=== PATIENT | female | born 1990 | race Caucasian/White ===

== ENCOUNTER → 2018-06-17 21:15 | Outpatient (CLI) | payer OTHER, SELFPAY ==
[2018-06-17 11:36] VITALS: BMI 23.4
[2018-06-23 19:56] LABS: HPV APTIMA, High Risk Negative (Negative)
== END ==
PROVIDERS: Referring Provider Nurse Practitioner Women's Health; Visit Provider Nurse Practitioner Women's Health
DX: Z12.4 Encounter for screening for malignant neoplasm of cervix (principal)
CPT/HCPCS: 87624; 88175; G0145

== ENCOUNTER → 2018-08-23 09:42 | Outpatient (CLI) | payer OTHER, SELFPAY ==
[2018-08-23 09:23] VITALS: BMI 23.4
[2018-08-23 10:57] LABS: Absolute Lymphocyte Count 1.57 X10^3/ul (0.83-4.51); Absolute Neutrophil Count 7.1 X10^3/uL (2.0-7.7); Basophil# 0.01 X10^3/uL; Basophil% 0.1 % (0-1); Eosinophil# 0.08 X10^3/uL; Eosinophils% 0.9 % (0-5); Hematocrit 39.3 % (37-47); Hemoglobin 13.6 g/dl (12.0-15.0); Lymphocyte # 1.57 X10^3/ul (4.0); Lymphocyte % 16.8 % (19-41); Mean Corp Hgb Conc 34.6 g/gl (32-36); Mean Corpuscular Hgb 31.5 pg (27.0-32.0); Mean Platelet Vol. 9.8 fl (6.2-12.0); Monocyte# 0.55 X10^3/uL; Monocyte% 5.9 % (0-10); Neutrophil # 7.14 X10^3/uL (2.7-7.7); Neutrophil % 76.1 % (47-70); Platelet Count 230 K/mm3 (150-450); RBC Distribution Width CV 12.4 % (11.6-14.6); RBC Distribution Width SD 41.2 fl (35.1-43.9); Red Blood Count 4.32 M/mm3 (4.2-5.4); White Blood Count 9.4 K/mm3 (4.4-11.0)
[2018-08-23 11:00] LABS: POSITIVE COUNT NO; POSITIVE DIFFERENTIAL NO; POSITIVE MORPHOLOGY NO
[2018-08-23 11:35] LABS: HIV - WCH Non-Reactive (Nonreactive); Rubella IgG 70.5 IU/mL
[2018-08-23 20:06] LABS: Chlamydia Trachomatis by PCR Negative (Negative); Neisserai gonorrhoeae by PCR Negative (Negative); Probe Check PASS; Sample Adequacy Control PASS; Specimen Processing Control PASS
[2018-08-25 16:34] LABS: HEPATITIS B SURFACE AG Negative (Negative)
[2018-08-27 01:10] LABS: Rapid Plasmin Reagin (RPR) NONREACTIVE (NONREACTIVE)
--- OUTSIDE RECORDS SUMMARY | 2018-10-25 19:49 | XMS RPT_ITS ---
:1990 Author Organization [place] Care Team Providers Name Role Phone Raquel Mon Attending Unavailable Primay Care Physicia, No Referring Unavailable Raquel Mon Attending Unavailable Primay Care Physicia, No Primary Care Unavailable [place], Raquel Attending Unavailable Primay Care Physicia, No Referring Unavailable Yaa, Raquel Attending Unavailable [place], Raquel Referring Unavailable Primay Care Physicia, No Primary Care Unavailable [place], Raquel Attending Unavailable Yaa, Raquel Referring Unavailable Primay Care Physicia, No Primary Care Unavailable PROBLEMS PROBLEMS DATE TYPE CONDITION / CODE ATTENDING STATUS SOURCE 08/24/2018 Unknown Z34.90 - Encounter Raquel Mon Active [place] for supervision of Community normal , Hospital unspecified, Repository unspecified trimester / Z34.90(ICD-10) 08/24/2018 Unknown O99.89 - Other [place], Raquel Active [place] specified diseases Community and conditions Hospital complicating Repository , childbirth and the puerperium / O99.89(ICD-10) 08/24/2018 Unknown Z20.821 - Contact [place]edar CreekRaquel morgan Active [place] with and Community (suspected) Hospital exposure to Zika Repository virus / Z20.821(ICD-10) 06/18/2018 Unknown Z12.4 - Encounter [place] CreekRaquel morgan Active [place] for screening for Community malignant neoplasm Hospital of cervix / Repository Z12.4(ICD-10) 06/17/2018 Unknown N92.6 - Irregular Yaa, Raquel Active [place] menstruation, Community unspecified / Hospital N92.6(ICD-10) Repository 06/17/2018 Unknown Z01.411 - Encounter Raquel Mon Active [place] for gynecological [facility] examination Hospital (general) (routine) Repository with abnormal findings / Z01.411(ICD-10) PROCEDURES PROCEDURES No Procedure Records FoundRESULTS RESULTS CT/NG [facility] BY PCR Collected: 08/23/2018 Status: F Source: [place] 5:44 PM [facility] REPOSITORY TYPE CODE TESTS RESULT OUT OF RANGE REFERENCE UNITS LAB L8200.2100 Negative Normal Chlam Negative Trac PCR LAB L8200.2200 Negative Normal NG by Negative PCR Performed By: #### L8200.1999 #### [facility] [address] [place], [address] Observed: 08/23/2018 Status: F Source: [place] CULTURE, URINE 5:44 PM [facility] REPOSITORY Urine Culture ORGANISM 1: Mixed Gram Pos AND Gram Neg Org [place] Count 11,000-25,000 MIX CULTURE Mixed contaminants. Submit a new specimen if indicated. Performed By: #### M100.0650 #### [facility] [address] [place], [address] SURGICAL RESIDENT OFFICE VISIT Observed: 08/23/2018 Status: F Source: [place] REPORT 10:31 AM [facility] REPOSITORY [facility] [address] [place] [address] OFFICE VISIT Date of Service: 08/23/18 MR#: [id number] Acct: [id number] Name: HANSA LOPEZ Rep #: [id number] : 1990 Provider: CONCHA Mon Age/Sex: 28/F Location: [facility] [place] Status: Signed Intake Vital Signs08/23/18 Body Mass Index (BMI) 23.4 08/23/18 Height 5 ft 3 in 08/23/18 Weight: 131 lb 08/23/18 Body Mass Index (BMI) 23.2 08/23/18 Blood Pressure 108/64 Intake Visit Reasons: NOB - LMP 06/26 Consultant Teacher Required: No Accompanied by: Is patient in pain?: No Allergies No Known Allergies Allergy (Verified 08/23/18 08:32) Medications cranberry fruit concentrate 250 mg chewable tablet 250 mg PO TID PRN 08/23/18 [History Confirmed 08/23/18] docosahexanoic acid 200 mg capsule mg PO cap 08/23/18 [History Confirmed 08/23/18] Last Menstral Period: 06/26/18 Zika: Zika virus screening: Negative : No PFSH PFSH Medical History History of wisdom tooth extraction, class II edentulism (Acute) Surgical History History of elbow surgery (Acute) Family History Grandmother Alzheimer's dementia Social History Smoking Status: Never smoker alcohol intake: never substance use type: does not use caffeine: Yes what type of physical activity do you participate in: yoga frequency: daily seatbelt use: always do you feel safe at home: Yes 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) On hormonal BC at conception: No hCG+: 08/11/18 Antepartum Record Genetic Screening: Congenital Heart Defect: Other, Neural Tube Defect: Other, Hemoglobinopathy Or Carrier: Other, Cystic Fibrosis: Other, Chromosome Abnormality: Other, Dhiraj-Sachs: Other, Hemophilia: Other, Intellectual Disability/Autism: Other, Recurrent Loss/Stillbirth: Other, Other Structural Defect: Patient (nephew cleft lip/palate), Other Genetic Disease: Other, Maternal Metabolic Disorder: Other Comments/Counseling: Reviewed and negative Infection History: Live with someone with TB or Exposed to TB: No, Patient or Partner has history of Genital Herpes: No, Rash or Viral illness since last mentrual period: No, Prior GBS-Infected child: No, History of STD: No, HIV Infection: No, History of Hepatitis: No, Recent travel outside of [place]: Yes, Concern for Hep exposure: No, Varicella immune: Yes (chicken pox and shingles hx) Medical History Medical History: Positive: Seasonal allergies, Operations/hospitalizations (left arm fx with repair), Negative: Diabetes, Hypertension, Heart disease, Auto-immune disorder, Kidney disease/UTI, Neurologic/epilepsy, Psychiatric, Depression/ depression, Hepatitis/liver disease, Varicosities/phlebitis, Thyroid dysfunction, Trauma/domestic violence, History of blood transfusions, D (Rh) Sensitized, Pulmonary (e.g.,TB,Asthma), Drug/latex allergies/reactions, Breast, Wage And Hour Investigator surgery, Anesthetic complications, History of abnormal pap, Uterine anomaly/mickie, Infertility, Anti-retroviral treatment, Relevant family history, Other ACOG First Trimester First Trimester: Desire for , Alcohol, Tobacco Cessation, Illicit/Recreational Drug/Substance Use, Intimate Partner Violence, Barriers to care, Unstable Housing, Communication Barriers, Environmental/Work Hazards, Anticipated Course of Care, Nurtrition and weight gain, Toxoplasmosis Precations, Use of Any medications, Sexual activity, Exercise, Dental Care, Sauna/Hot tub use, Seat Belt use, Childbirth classes/Hospital facilities, Travel, Indications for US and Screening for Aneuploidy; discussed ROS Const Reports as per HPI Card Denies chest pain, Denies shortness of breath Resp Denies shortness of breath GI Denies change in stools Denies difficulty urinating, Denies abnormal vaginal bleeding, Denies vaginal odor, Denies vaginal itching, Denies vaginal discharge Exam Const General: cooperative, healthy appearing, well developed Nutritional Appearance: average body habitus, well nourished Orientation: oriented x3 Neck Neck: normal visual inspection Neck mass: No Thyroid: thyroid normal Chest Breast inspection: other (deferred, recent) Resp Effort AND Inspection: normal respiratory effort GI Inspection: normal to inspection Palpation: soft, nontender, no masses External Female Exam: normal external appearance, normal appearance of the urethra Urethra: normal appearance of the urethra Speculum Exam - Vagina: normal appearance of the vagina, normal vaginal discharge Speculum Exam - Cervix: normal appearance of the cervix, closed cervix, other (GCC collected) Bimanual Exam- Vagina AND Uterus: normal bimanual exam, uterine shape normal, uterine size normal (10 weeks) Bimanual Exam- Adnexa, other: normal adnexae, no adnexal masses, adnexae non-tender Other: TV US per Dr. Dennis Liver IUD with FHT 166 CRL 1.6cm. 8 wk 2 days. SANA 04/02/19 Skin General: no rashes or lesions noted, turgor normal Assessment AND Plan Problems 1. Encounter for supervision of normal first in first trimester Z34.01 Grav 1 SANA 04/02/19 Spouse: Ranulfo 2. 8 weeks gestation of Z3A.08 Genetic carrier and screen:checking insurance. Plan Patient oriented to practice and discussed care expectations and screenings. ACOG book offered to patient. labs plus Zika Declines flu vaccine Genetic screening offered to patient and patient chose: checking insurance RTO 4 weeks Orders Orders: Medications New: Coding Level of Care Code Off vis,est,level 4 Diagnoses Encounter for supervision of normal first in first trimester Z34.01 Trimester: first trimester 8 weeks gestation of Z3A.08 Weeks of gestation: 8 weeks 08/23/18 1031 <Electronically signed by Raquel GREYC> Date Raquel Mon BELTING CUTTER-C Cosigner Signature: Date (if applicable) CC: CBC W/DIFF, AUTOMATED Collected: 08/23/2018 Status: F Source: [place] 9:50 AM [facility] REPOSITORY TYPE CODE TESTS RESULT OUT OF RANGE REFERENCE UNITS LAB L100.1000 4.4-11.0 K/mm3 Normal WBC 9.4 LAB L100.1200 4.2-5.4 M/mm3 Normal RBC 4.32 LAB L100.1300 12.0-15.0 g/dl Normal HGB 13.6 LAB L100.1400 37-47 % Normal HCT 39.3 LAB L100.1500 81-99 fL Normal MCV 91.0 LAB L100.1600 27.0-32.0 pg Normal MCH 31.5 LAB L100.1700 32-36 g/gl Normal MCHC 34.6 LAB L100.1810 11.6-14.6 % Normal RDW CV 12.4 LAB L100.1820 35.1-43.9 fl Normal RDW SD 41.2 LAB L100.1900 150-450 K/mm3 Normal PLT 230 LAB L100.2000 6.2-12.0 fl Normal MPV 9.8 LAB L100.2100 47-70 % High NEUT% 76.1 LAB L100.2200 19-41 % Low LY% 16.8 LAB L100.2300 0-10 % Normal MONO% 5.9 LAB L100.2400 0-5 % Normal EO% 0.9 LAB L100.2500 0-1 % Normal BASO% 0.1 LAB L100.2550 0.0-0.9 % Normal IM GRAN % 0.200 Result Comment: IG% - Immature Granulocytes (promyelocytes, myelocytes and metamyelocytes) > 1% indicates that a LEFT SHIFT is Present. LAB L100.2620 2.0-7.7 X10 3/uL Normal Absolute Neut 7.1 LAB L100.2720 0.83-4.51 X10 3/ul Normal Absolute Lymph 1.57 Performed By: #### L100.0100 #### [facility] [address] [place], [address] RUBELLA IGG Collected: 08/23/2018 Status: F Source: [place] 9:50 AM [facility] REPOSITORY Order Comment: Comments: [id number] ZIKA SERUM AND URINE FROZEN TYPE CODE TESTS RESULT OUT OF RANGE REFERENCE UNITS LAB L509.4000 IU/mL Normal Rubella IgG 70.5 Result Comment: Antibody results Interpretation of Immune Status < 5 IU/ml Presumed Non-immune 5 - < 10 IU/ml Equivocal > or = 10 IU/ml Presumed Immune Performed By: #### L509.4000, L3890.6005 #### [facility] [address] [facility] [place], [address] HIV - [facility] Collected: 08/23/2018 Status: F Source: [place] 9:50 AM [facility] REPOSITORY Order Comment: Comments: [id number] ZIKA SERUM AND URINE FROZEN TYPE CODE TESTS RESULT OUT OF RANGE REFERENCE UNITS LAB L3890.6005 Nonreactive Normal HIV - [facility] Non-Reactive Performed By: #### L509.4000, L3890.6005 #### [facility] [address] [place], [address] TYPE AND SCREEN Collected: 08/23/2018 Status: F Source: [place] 9:50 AM [facility] REPOSITORY Order Comment: Reason for Type AND Screen/Red Cells: TYPE CODE TESTS RESULT OUT OF RANGE REFERENCE UNITS LAB B10.0800 O Normal BLOOD TYPE GEL POSITIVE LAB B100.4000 Normal Antibody NEGATIVE Screen Performed By: #### B101.7450 #### [facility] [address] [facility] [place], [address] HEPATITIS B SURFACE Collected: 08/23/2018 Status: F Source: [place] AG 9:50 AM [facility] REPOSITORY TYPE CODE TESTS RESULT OUT OF RANGE REFERENCE UNITS LAB L3100.0400 Negative Normal HB Negative SURF AG Result Comment: Performed at: - [facility] [address] [id number] Stable Helper: Russ Mitchell PhD, Phone: [phone] Performed By: #### L3100.0390 #### [facility] (refer to report for specific site) refer to report for address and phone number RAPID PLASMIN REAGIN Collected: 08/23/2018 Status: F Source: [place] (RPR) 9:50 AM [facility] REPOSITORY TYPE CODE TESTS RESULT OUT OF REFERENCE UNITS RANGE LAB L700.5000 NONREACTIVE NONREACTIVE Normal RPR Performed By: #### L700.5000 #### [facility] [address] 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 of containers..01 ThinPrep Vial TYPE CODE TESTS RESULT OUT OF RANGE REFERENCE UNITS LAB L7400.0800 . Normal DIAGN Comment Result Comment: NEGATIVE FOR INTRAEPITHELIAL LESION AND MALIGNANCY. FUNGAL ORGANISMS MORPHOLOGICALLY CONSISTENT WITH NAE SPECIES ARE PRESENT. LAB L7400.0900 . Normal ADEQ Comment Result Comment: Satisfactory for evaluation. Endocervical and/or squamous metaplastic cells (endocervical component) are present. LAB L7400.1400 . Normal PERFORM Comment Result Comment: Lisette Le, Front Counter Clerk (ASCP) LAB L7400.2575 . Normal TEST METHOD Comment Result Comment: This liquid based ThinPrep(R) pap test was screened with the use of an image guided system. LAB L7400.2600 . Normal . COMM LAB L7400.2700 . Normal PAPSMR Comment Result Comment: The Pap smear is a screening test designed to aid in the detection of premalignant and malignant conditions of the uterine cervix. It is not a diagnostic procedure and should not be used as the sole means of detecting cervical cancer. Both false-positive and false-negative reports do occur. LAB L7400.2760 Negative Normal HPV APTIMA, Negative HR Result Comment: This test detects fourteen high-risk HPV types (16/18/31/33/35/39/45/ 51/52/56/58/59/66/68) without differentiation. Performed at: - [facility] [id number] Stable Helper: Adry England MD, Phone: [phone] Performed at: = - [facility] [address] [id number] Stable Helper: Adry England MD, Phone: [phone] Performed By: #### L7400.0280 #### [facility] (refer to report for specific site) refer to report for address and phone number SURGICAL RESIDENT OFFICE VISIT Observed: 06/17/2018 Status: F Source: [place] REPORT 12:11 PM [facility] [address] [place] [address] OFFICE VISIT Date of Service: 06/17/18 MR#: [id number] Acct: [id number] Name: HANSA LOPEZ Rep #: [id number] : 1990 Provider: CONCHA Mon Age/Sex: 28/F Location[place] [facility] [place] Status: Signed Intake Vital Signs06/17/18 Height 5 ft 3 in 06/17/18 Weight: 132 lb 8 oz 06/17/18 Body Mass Index (BMI) 23.4 06/17/18 Blood Pressure 122/76 H 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 Complaint: NEW annual Consultant Teacher Required: No Is patient in pain?: No Allergies No Known Allergies Allergy (Unverified 06/17/18 11:37) Medications medroxyprogesterone 10 mg tablet 10 mg PO DAILY #5 tab 06/17/18 [Rx Confirmed 06/17/18] Is last menstrual period known: Yes Last Menstral Period: 05/11/18 Post menopausal: No Patient : No : No [facility] Medical History History of wisdom tooth extraction, class II edentulism (Acute) Surgical History History of elbow surgery (Acute) Family History Grandmother Alzheimer's dementia Social History Smoking Status: Never smoker alcohol intake: never substance use type: does not use caffeine: Yes what type of physical activity do you participate in: walking seatbelt use: always do you feel safe at home: Yes 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 No contraception since November, wants . Menses irregular every 4-6 weeks. Negative urine 3 days ago. Taking vitamin. Last PAP: unsure. Last exam just over 1 year ago at [facility] History of abnormal PAP: no Female Reproductive History Last Menstral Period: 05/11/18 Questions: Metorrhagia: No, Sexually active: Yes, Dyspareunia: No, PCB: No ROS Const Constitutional: Denies fatigue, weight gain or weight loss Cardio Card: Denies chest pain Resp Resp: Denies cough or shortness of breath with activity GI GI: Denies abdominal pain, constipation, change in stools, vomiting or bloating : Reports as per HPI; denies urinary frequency, pelvic pain, urinary urgency, vaginal discharge, vaginal itching, urinary incontinence or difficulty urinating Exam Const General: cooperative, healthy appearing, no acute distress, well developed Orientation: alert, oriented to person, oriented to place HENTX Head: normal to inspection Neck Neck: normal visual inspection Thyroid: thyroid normal Lymphatic: no lymphadenopathy noted Chest Breast inspection: normal inspection of the breasts, normal inspection of the axillae Breast palpation: normal palpation of the breasts, normal palpation of the axillae, no axillary lymphadenopathy Resp Effort AND Inspection: normal respiratory effort GI Palpation: soft, nontender, no masses Rectal Exam: deferred External Female Exam: normal external appearance, normal appearance of the urethra Urethra: normal appearance of the urethra, normal palpation Speculum Exam - Vagina: normal appearance of the vagina, normal vaginal discharge Speculum Exam - Cervix: normal appearance of the cervix (pap collected) Bimanual Exam- Vagina AND Uterus: normal bimanual exam, uterine size normal, uterine shape normal, uterus non-tender Bimanual Exam- Adnexa, other: normal adnexae, no adnexal masses, adnexae non-tender, pelvic support normal Pelvic Support: normal Neuro General: alert, oriented x3 Psych Affect: normal affect Results [facility]MS[facility] Office , Urine Negative Last Edit by Yaz Hernandez on 06/17/18 11:57 Assessment AND Plan Problems 1. Encounter for gynecological examination with abnormal finding Z01.411 2. Irregular menses N92.6 3. Pap smear for cervical cancer screening Z12.4 Plan Completed breast and pelvic exam Reviewed diet and exercise Pap thin prep pap with HPV Continue vitamins Urine test negative. Provera 10 mg X 5 days. Call 07/03 if no menses. In future, if no menses by day 30 do home UPT and call results and will repeat provera challenge RTO 1 year, prn with problems Raquel Mon [facility] Orders Orders: Medications New: Coding Level of Care Code Off vis,new,prev 18-39yrs Diagnoses Encounter for gynecological examination with abnormal finding Z01.411 Gynecological examination findings: abnormal findings PRESENT Irregular menses N92.6 Pap smear for cervical cancer screening Z12.4 06/17/18 1211 <Electronically signed by Raquel ANG> Date Raquel GREYC Cosigner Signature: Date (if applicable) CC: ALLERGIES ALLERGIES DATE TYPE / CODE NAME / CODE REACTION SEVERITY SOURCE 08/23/2018 Drug No Known Unknown [facility] Allergy/4160 Allergies/F00 Hospital 69487(SNOMED [id number](RXNOR Repository CT) M) ENCOUNTERS ENCOUNTERS ADMIT/DISCHARGE ACCOUNT ADMITTING ENCOUNTER LOCATION SOURCE NUMBER CLASS 08/24/2018 [id number] Ambulatory [place] [facility] ing:LAB Repository 08/23/2018 [id number] Ambulatory [place] [facility] ing:PAVLAB Repository 08/23/2018/ [id number] Ambulatory BMSBuilding:B [place] 9 6 [facility] Hospital Repository 06/17/2018 [id number] [place] [facility] ing:LABSPEC Repository 06/17/2018/ [id number] Ambulatory BMSBuilding:B [place] 8 7 [facility] Repository PAYERS PAYERS ENCOUNTER GUARANTOR PAYER SUBSCRIBER SOURCE 08/24/2018 HANSA Norris Primary HANSA Norris [place] [id number] AMAN[place] Insurance:[employer] PURDYDOB: [place], [place] icy Number: [id number] Hospital [id number]: 330 [id number] Repository [phone] () Date:5279-29-28ZS [address] [address]LM: 08/24/2018 Secondary NOT GIVENUNK [place] Insurance:SELF PAY [facility] Number: Effective Repository Date:2018-08-24 08/23/2018 HANSA Myrna Primary HANSA Norris [place] [id number] AMANDA Insurance:[employer] PURDYDOB: [place], [place] icy Number: [id number] Hospital [id number]: 330 [id number] Repository [phone] () Date:[id number] [address] [address]EB: 08/23/2018 Secondary NOT GIVENUNK [place] Insurance:SELF PAY [facility] Number: Effective Repository Date:2018-08-23 08/23/2018 HANSA LOPEZ957 Primary HANSA PURDYDOB: [place] AMANDA Insurance:[employer]ARE[employer] [id number] [place] icy Number: [facility] [address]Zuo: 330 [id number] Repository [phone] () Date:4518-04-00MZ [address] [phone]: 08/23/2018 Secondary NOT GIVENUNK [place] Insurance:SELF PAY [facility] Number: Effective Repository Date:2018-08-23 06/17/2018 HANSA LOPEZ957 Primary HANSA PURDYDOB: [place] AMANDA Insurance[id number] Hospital [id number]: 330 [id number] Repository [phone] () Date:5492-23-61PX [address] [place], [place] [address]WP: 06/17/2018 Secondary NOT GIVENUNK [place] Insurance:SELF PAY [facility] Number: Effective Repository Date:2018-06-17 06/17/2018 HANSA LOPEZ957 Primary HANSA PURDYDOB: [place] AMANDA Insurance:[employer]ARE[employer] [id number] [place] icy Number: Hospital [id number]: 330 [id number] Repository [phone] () Date:0727-82-07ZS [address] [place] [phone]: 06/17/2018 Secondary NOT GIVENUNK [place] Insurance:SELF PAY [facility] Number: Effective Repository Date:2018-06-17
== END ==
PROVIDERS: Visit Provider Nurse Practitioner Women's Health
DX: O99.89 Other specified diseases and conditions complicating pregnancy, childbirth and the puerperium (principal); Z20.821 Contact with and (suspected) exposure to Zika virus
CPT/HCPCS: 36415; 85025; 86592; 86703; 86762; 86850; 86900; 87086; 87088; 87340; 87491; 87591

== ENCOUNTER → 2018-08-24 16:37 | Outpatient (CLI) | payer OTHER, SELFPAY ==
[2018-08-23 09:23] VITALS: BMI 23.4
== END ==
PROVIDERS: Referring Provider Nurse Practitioner Women's Health; Visit Provider Nurse Practitioner Women's Health
DX: Z00.00 Encounter for general adult medical examination without abnormal findings (principal)

== ENCOUNTER → 2018-09-20 09:08 | Outpatient (CLI) | payer OTHER, SELFPAY ==
[2018-09-20 08:51] VITALS: BMI 23.4
== END ==
PROVIDERS: Visit Provider Nurse Practitioner Women's Health
DX: Z34.81 Encounter for supervision of other normal pregnancy, first trimester (principal)
CPT/HCPCS: 36415

== ENCOUNTER → 2018-10-18 09:43 | Outpatient (CLI) | payer OTHER, SELFPAY ==
[2018-10-18 09:01] VITALS: BMI 23.4
== END ==
PROVIDERS: Visit Provider Obstetrics & Gynecology
DX: Z36.9 Encounter for antenatal screening, unspecified (principal)
CPT/HCPCS: 36415

== ENCOUNTER → 2019-01-11 09:07 | Outpatient (CLI) | payer OTHER, SELFPAY ==
[2019-01-11 08:33] VITALS: BMI 25.1
[2019-01-11 09:44] LABS: Absolute Lymphocyte Count 1.14 X10^3/ul (0.83-4.51); Absolute Neutrophil Count 8.9 X10^3/uL (2.0-7.7); Basophil# 0.01 X10^3/uL; Basophil% 0.1 % (0-1); Eosinophil# 0.09 X10^3/uL; Eosinophils% 0.8 % (0-5); Hematocrit 31.8 % (37-47); Hemoglobin 11.1 g/dl (12.0-15.0); Lymphocyte # 1.14 X10^3/ul (4.0); Lymphocyte % 10.7 % (19-41); Mean Corp Hgb Conc 34.9 g/gl (32-36); Mean Corpuscular Hgb 32.1 pg (27.0-32.0); Mean Corpuscular Volume 91.9 fL (81-99); Mean Platelet Vol. 9.3 fl (6.2-12.0); Monocyte# 0.55 X10^3/uL; Monocyte% 5.1 % (0-10); Neutrophil # 8.88 X10^3/uL (2.7-7.7); Neutrophil % 83.1 % (47-70); Platelet Count 209 K/mm3 (150-450); RBC Distribution Width CV 12.2 % (11.6-14.6); RBC Distribution Width SD 40.8 fl (35.1-43.9); Red Blood Count 3.46 M/mm3 (4.2-5.4); White Blood Count 10.7 K/mm3 (4.4-11.0)
[2019-01-11 09:49] LABS: POSITIVE COUNT NO; POSITIVE DIFFERENTIAL NO; POSITIVE MORPHOLOGY NO
[2019-01-11 09:55] LABS: Glucose Challenge Gest 1H 50g 123 mg/dL (70-140)
== END ==
PROVIDERS: Referring Provider Obstetrics & Gynecology; Visit Provider Obstetrics & Gynecology
DX: Z34.93 Encounter for supervision of normal pregnancy, unspecified, third trimester (principal); Z3A.28 28 weeks gestation of pregnancy
CPT/HCPCS: 36415; 82950; 85025

== ENCOUNTER → 2019-03-07 16:57 | Outpatient (CLI) | payer OTHER, SELFPAY ==
[2019-03-07 08:44] VITALS: BMI 25.1
== END ==
PROVIDERS: Referring Provider Obstetrics & Gynecology; Visit Provider Obstetrics & Gynecology
DX: Z34.93 Encounter for supervision of normal pregnancy, unspecified, third trimester (principal); Z3A.36 36 weeks gestation of pregnancy
CPT/HCPCS: 87081

== ENCOUNTER 2019-04-05 09:25 | Inpatient (IN) | payer OTHER, SELFPAY ==
[2019-03-14 08:45] VITALS: BMI 25.1
[2019-04-05 08:45] VITALS: BMI 27.8
[2019-04-05 09:36] VITALS: BMI 28.0
[2019-04-05] MEDS: Lactated Ringers 1,000 ML 50 ML IV (09:55)
[2019-04-05 10:05] LABS: Absolute Lymphocyte Count 1.54 X10^3/uL (0.83-4.51); Absolute Neutrophil Count 8.1 X10^3/uL (2.0-7.7); Basophil# 0.03 X10^3/uL; Basophil% 0.3 % (0-1); Eosinophil# 0.17 X10^3/uL; Eosinophils% 1.6 % (0-5); Hematocrit 32.5 % (37-47); Hemoglobin 10.8 g/dL (12.0-15.0); Lymphocyte # 1.54 X10^3/ul (4.0); Lymphocyte % 14.5 % (19-41); Mean Corp Hgb Conc 33.2 g/dL (32-36); Mean Corpuscular Hgb 28.1 pg (27.0-32.0); Mean Corpuscular Volume 84.4 fL (81-99); Mean Platelet Vol. 11.2 fl (6.2-12.0); Monocyte# 0.72 X10^3/uL; Monocyte% 6.8 % (0-10); NRBC Flagged by Analyzer 0 % (0-5); Neutrophil % 76.3 % (47-70); Platelet Count 228 K/mm3 (150-450); RBC Distribution Width CV 12.4 % (11.6-14.6); Red Blood Count 3.85 M/mm3 (4.2-5.4); White Blood Count 10.6 K/mm3 (4.4-11.0)
[2019-04-05] MEDS: Oxytocin 30 units/NS 500 ml 30 UNITS/500 ML IV.SOLN IV (14:08)
--- NOTE | 2019-04-05 21:41 | HP.PCM_ITS ---
- Problem List (1) Status: Acute Qualifiers: Comment: male. NIPT low risk. AFP negative; normal anatomy (2) Supervision of normal first Status: Acute Qualifiers: Comment: PRR SANA 04/02/19 boy name surprise Spouse: Ranulfo History and Physical Date of Admission: 04/05/19 Intake Vital Signs 04/05/19 Body Mass Index (BMI) 27.8 04/05/19 Height 5 ft 3 in 04/05/19 Weight: 157 lb 04/05/19 Body Mass Index (BMI) 27.8 04/05/19 Blood Pressure 128/84 H Intake Visit Reasons: 40 WEEK OB Chief Complaint: est ob Survey Research Analyst Required: No Is patient in pain?: No Allergies No Known Allergies Allergy (Verified 04/05/19 08:45) Medications cranberry fruit concentrate 250 mg chewable tablet 250 mg PO TID PRN 08/23/18 [History Confirmed 04/05/19] docosahexanoic acid 200 mg capsule mg PO cap 08/23/18 [History Confirmed 04/05/19] Last Menstral Period: 06/26/18 Zika: Zika virus screening: Negative : No PFSH PFSH Surgical History History of elbow surgery (Acute) History of wisdom tooth extraction, class II edentulism (Acute) Family History Grandmother Alzheimer's dementia Social History (Updated 04/05/19 @ 09:10 by Carolyn Dennis MD) Smoking Status: Never smoker alcohol intake: never substance use type: does not use caffeine: Yes what type of physical activity do you participate in: yoga frequency: daily seatbelt use: always do you feel safe at home: Yes additional social history: Ranulfo- Patient works at [employer] History 1 Elective abortions Hx Para Spontaneous abortions Hx # Term Pregnancies Ectopic pregnancies Hx # Pregnancies Multiple births # of living children HPI 40 WEEK OB: Details: HANSA LOPZE is a 28 year old who presents for routine OB visit. fundal height is low and kevin is oligohydramnios at 5.3 cm. recommend IOL today. OB Visit SANA Calculator Estimated Delivery Date Method Current WG Current Estimate 04/02/19 LMP (Certain) 40w 3d Expected Delivery Route/Plan Specific Issue/Plans flu vaccine: declines tdap vaccine: given rhogam: na LARC form signed: declined labor support person: Ranulfo pain management: minimal intervention, open to epidural cut cord/dad catch: : yes PP control planned: [] special requests: [] Initial Weight: 130 lb Date EGA Weight BP Urine Prot Glucose FHR FuHt Pres Mov CTX Dilation Effaced St Visit Note Effaced 09/20/18 12w 2d 132 lb (+2 lb) 130/62 Negative Negative 166 Doing well. No VB, lof. Plans NIPT today 10/18/18 16w 2d 138 lb 8 oz (+8 lb 8 oz) 120/72 Negative Negative 160 no vb cramping ordered afp 11/15/18 20w 2d 142 lb (+12 lb) 112/64 Negative Negative 151 20 No VB, LOF. Dong well 12/21/18 25w 3d 148 lb (+18 lb) 116/72 Negative Negative 150 25 no vb lof good fm no reuglar ctx 01/11/19 28w 3d 153 lb (+23 lb) 116/74 Negative Negative 153 28 Active absent no vb lof good fm n oregular ctx 01/24/19 30w 2d 151 lb (+21 lb) 110/82 Negative Negative 145 31 Active absent no vb lof good fm n oregular ctx, took CB class, has BF class this week. 02/07/19 32w 2d 152 lb 4 oz (+22 lb 4 oz) 116/68 Negative Negative 159 32 Active absent No VB, LOF. doing well 02/21/19 34w 2d 156 lb (+26 lb) 114/80 Negative Negative 140 34 Active absent no vb lof good fm n oregulr ctx 03/07/19 36w 2d 157 lb (+27 lb) 114/62 Negative Negative 140 36 Active absent 0 no vb lof good fm no regular ctx gbs done 03/14/19 37w 2d 159 lb (+29 lb) 110/80 Negative Negative 140 38 Cephalic Active absent 0 no vb lof good fm n oregular ctx 03/21/19 38w 2d 157 lb (+27 lb) 110/80 Negative Negative 140 38 Cephalic Active absent 0 no vb lof good fm no regular ctx. 03/28/19 39w 2d 157 lb (+27 lb) 120/86 Negative Negative 150 39 Cephalic Active 1 no vb lof still fairly comfortable Visit Notes Visit Date: 03/28/19 ??no vb lof still fairly comfortable ??Carolyn Dennis MD on 03/28/19 Visit Date: 03/21/19 ??no vb lof good fm no regular ctx. ??Carolyn Dennis MD on 03/21/19 Visit Date: 03/14/19 ??no vb lof good fm n oregular ctx ??Carolyn Dennis MD on 03/14/19 Visit Date: 03/07/19 ??no vb lof good fm no regular ctx gbs done ??Carolyn Dennis MD on 03/07/19 Visit Date: 02/21/19 ??no vb lof good fm n oregulr ctx ??Carolyn Dennis MD on 02/21/19 Visit Date: 02/07/19 ??No VB, LOF. doing well ??QUE TaylorC on 02/07/19 Visit Date: 01/24/19 ??no vb lof good fm n oregular ctx, took CB class, has BF class this week. ??Carolyn Dennis MD on 01/24/19 Visit Date: 01/11/19 ??no vb lof good fm n oregular ctx ??Carolyn Dennis MD on 01/11/19 Visit Date: 12/21/18 ??no vb lof good fm no reuglar ctx ??Carolyn Dennis MD on 12/21/18 Visit Date: 11/15/18 ??No VB, LOF. Dong well ??SAV Taylor on 11/15/18 Visit Date: 10/18/18 ??ordered afp ??Carolyn Dennis MD on 10/18/18 ??no vb cramping ??Carolyn Dennis MD on 10/18/18 Visit Date: 09/20/18 ??Doing well. No VB, lof. Plans NIPT today ??SAV Taylor on 09/20/18 ACOG First Trimester First Trimester: Desire for , Alcohol, Tobacco Cessation, Illicit/Recreational Drug/Substance Use, Intimate Partner Violence, Barriers to care, Unstable Housing, Communication Barriers, Environmental/Work Hazards, Anticipated Course of Care, Toxoplasmosis Precations, Use of Any medications, Sexual activity, Exercise, Dental Care, Sauna/Hot tub use, Seat Belt use, Childbirth classes/Hospital facilities, , Travel, Indications for US and Screening for Aneuploidy Second Trimester Second Trimester: Signs and Symptoms of Labor, Selecting a care provider, Reproductive Life Planning, Care Planning, Tobacco Cessation, Depression/Anxiety and Intimate Partner Violence Third Trimester Third Trimester: Pain Management Plans, Labor support person(s), Immediate Larc, Movement Monitoring and Feeding Yes ; discussed Trial of Labor after Counseling or discussed Circumcision preference Diagnostics Diagnostics Labs Hct 31.8 % (37-47) L 01/11/19 Hgb 11.1 g/dl (12.0-15.0) L 01/11/19 Glucose 1 Hr 50 gm 123 mg/dL (70-140) 01/11/19 Miscellaneous Test 10/18/18 Diagnostics Glucose 1 Hr 50 gm 123 mg/dL (70-140) 01/11/19 Hgb 11.1 g/dl (12.0-15.0) L 01/11/19 Hct 31.8 % (37-47) L 01/11/19 Details: HIV: Urine Culture: Sequential Screen: NIPT Screen: ROS Const Reports system reviewed and no additional complaints, except as docu Card Reports system reviewed and no additional complaints, except as docu Resp Reports system reviewed and no additional complaints, except as docu GI Reports system reviewed and no additional complaints, except as docu, Reports nausea Reports system reviewed and no additional complaints, except as docu Musc Reports system reviewed and no additional complaints, except as docu Exam Const General: cooperative, healthy appearing, comfortable, anxious [facility] Head: normal to inspection Nose: external nose normal Face and sinus: normal facial exam Neck Neck: normal visual inspection, full ROM, no lymphadenopathy Thyroid: thyroid normal Chest Chest palpation & inspection: normal inspection of the chest Resp Effort & Inspection: normal respiratory effort GI Inspection: normal to inspection Palpation: soft, other (gravid uterus) Other: infant vertex and appropriate size for gestational age Other: Cervical Exam: Extrem General: pedal edema Results [id number] Office Urine Glucose Negative Last Edit by Yaz Hernandez on 04/05/19 08:4 9 Office Urine Protein Negative Last Edit by Yaz Hernandez on 04/05/19 08:4 9 Assessment & Plan Problems 1. 40 weeks gestation of Z3A.40 2. Encounter for supervision of normal first in third trimester Z34.03 Plan Patient presents IOL, plan management for , pitocin/AROM bond bulb. Pain management: prefers minimal intervention. GBS negative. Management of any complications: oligo- kevin 5 cm I have reviewed the [facility] and made any clinically relevant updates. Orders Orders: POC Urinalysis 2 Dip (Clinic) Today Coding Level of Care Code OB Routine Diagnoses 40 weeks gestation of Z3A.40 ??Weeks of gestation: 40 weeks Encounter for supervision of normal first in third trimester Z34.03 ??Trimester: third trimester
--- NOTE | 2019-04-05 21:42 | PCM.PN.BLA ---
Progress Note fht 140 moderate variability reactive early decelerations category I tracing [place]: regular arom clear fluid continue pit per protocol
[2019-04-05] MEDS: Lactated Ringers 500 ML 999 ML IV (23:17)
[2019-04-06] VITALS (13 sets, daily range): BP systolic 106–140; BP diastolic 68–78; PULSE 81–107; RESP 16; TEMP 36.4–36.8; O2SAT 96–100
[2019-04-06] MEDS: Lactated Ringers 1,000 ML 200 ML IV ×3 (00:14→10:18)
[2019-04-06] MEDS: Lactated Ringers 500 ML 999 ML IV ×2 (02:04→03:20)
[2019-04-06] MEDS: fentaNYL-bupivacaine (epidural) 100 ML BAG EPIDURAL ×3 (04:19→13:44)
--- NOTE | 2019-04-06 10:32 | PN_ITS ---
Progress Note fht 130 moderate variability reactive occasional periodic variable decelerations category II tracing [place]: regular pushing now continue. overall reassuring status, has epi
--- NOTE | 2019-04-06 10:32 | PCM.PN.BLA ---
Progress Note fht 130 moderate variability reactive occasional periodic variable decelerations category II tracing [place] [address]: regular pushing now continue. overall reassuring status, has epi
[2019-04-06] MEDS: Sodium Citrate/Citric Acid 30 ML UDC PO (15:13)
[2019-04-06] MEDS: Cefazolin 2 GM in 0.9% Normal Saline 100 ML IV (15:39)
[2019-04-06] MEDS: Methylergonovine 0.2 MG/ML Ampul IM (15:47)
--- NOTE | 2019-04-06 16:15 | OP.PCM_ITS ---
Problem List (1) Status: Acute Qualifiers: Comment: male. NIPT low risk. AFP negative; normal anatomy (2) Supervision of normal first Status: Acute Qualifiers: Comment: PRR SANA 04/02/19 boy name surprise Spouse: Ranulfo (3) Oligohydramnios Status: Acute (4) Cephalopelvic disproportion Status: Acute Report of Operation Date of Procedure: 04/06/19 Pre-Operative Diagnosis: arrest of descent cpd oligo Post-Operative Diagnosis: same Delivery Classification: MELISSA Final SANA: 04/02/19 Gestational age: 40 Weeks and 4 Days transportation broker: Tania Paniagua Type of Anesthesia:: Spinal Special Medications: none Implants Used: none Indications: preop diagnosis-see indications. CPD oligo AOD postop diagnosis - same Indications for : Failure to Progress, Arrrest of Descent, Oligohydramnios Description of Procedure: 28-year-old G1, P0 at 40 weeks 3 days presents for induction labor secondary to oligohydramnios with an KARLA of 5 cm. Patient underwent Pitocin and Meng bulb induction of labor and artificial rupture membranes. Patient proceeded to complete dilation under epidural anesthesia pushed for 1 hour and then the anterior lip of the cervix was noted to return and therefore the patient was labored down and position changes were employed in the cervix was noted to regress. Patient began pushing again and after 2 hours with good maternal effort again the cervix became apparent and swollen anteriorly and the pelvic outlet was felt to be narrow and with a very prominent sacrum. Epidural anesthesia had some limited efficacy and therefore the decision for spinal anesthesia was made. Spinal anesthesia was placed without difficulty. Meng catheter was placed. The patient was placed in the dorsal supine position with leftward tilt. Patient was prepped and draped in the normal sterile fashion. Pfannenstiel skin incision was made with the scalpel and carried through to the underlying layer of fascia with the scalpel. Fascia was nicked in the midline and the incision extended laterally. The rectus bellies were dissected off superiorly and inferiorly with out complication both sharply and bluntly. The peritoneum was entered digitally. The incision was stretched and a low transverse uterine incision was made with the scalpel. The 's head was delivered atraumatically followed by the anterior and posterior shoulders without complication the rest of the infant delivered. The cord was clamped and cut and the infant was handed off to awaiting nurse. The placenta was delivered spontaneously immediately following and was noted to be intact and have a three- vessel cord. The uterus was exteriorized cleared of all clots and debris, and the incision was closed in a double layer closure using #1 Monocryl. The ovaries and fallopian tubes were noted to be within normal limits. The uterus was returned to the maternal abdomen and gutters were cleared of all clots and debris. The peritoneum was closed with 3-0 Monocryl in a running fashion. Gloves were changed prior to fascial closure. Fascia was closed with 0 PDS in a running fashion. Subcutaneous tissue was copiously irrigated and the skin was closed with 3-0 Monocryl in a subcuticular fashion. Mepilex dressing was applied without complication. Patient was taken to recovery in stable condition. Amniotic Membrane Rupture Type: Artificial Amniotic Fluid Description: Clear Placenta Disposition: [facility] Specimen(s) sent to pathology: none Drain: Meng to straight drain Fluids Replaced: crystalloid Cord Entanglement: None Nuchal Cord Compression: With compression Cord Vessel Description: 3 Vessels Esitmated Blood Loss (ml): 500 Gender: Male Delayed cord clamping: Yes Antibiotic Given: Ancef 2 grams IV x1, Zithromax 500 mg/5 mL X1 Pt instructed on risks of surgery: Bleeding, Anesthesia Risks, Infection, Permanency, Failure Rate of 1 to 2% Complications: None - Admit VTE Documentation VTE Present on Admission: No VTE Mechan Device Prophylaxis: SCD's Code Visit [id number]: 23119 Delivery [facility]
[2019-04-06] MEDS: Oxytocin 30 units/NS 500 ml 30 UNITS/500 ML IV.SOLN 167 UNITS IV (17:47)
[2019-04-06] MEDS: Lactated Ringers 1,000 ML 100 ML IV (21:05)
[2019-04-06] MEDS: Ketorolac 30 MG/ML Syringe IV (22:36)
[2019-04-07] VITALS (12 sets, daily range): BP systolic 99–131; BP diastolic 53–80; PULSE 72–112; RESP 16–18; TEMP 36.6–37.1; O2SAT 94–98
[2019-04-07] MEDS: Lactated Ringers 1,000 ML 100 ML IV (03:22)
[2019-04-07] MEDS: Ketorolac 30 MG/ML Syringe IV ×4 (04:36→21:49)
--- NOTE | 2019-04-07 04:46 | NURSING ---
this RN dc'c an IV that pt reports was palced in OR. was in right hand. site intact and without any symptom
[2019-04-07 05:01] LABS: Hematocrit 28.5 % (37-47); Hemoglobin 9.3 g/dL (12.0-15.0); Mean Corp Hgb Conc 32.6 g/dL (32-36); Mean Corpuscular Hgb 28.1 pg (27.0-32.0); Mean Corpuscular Volume 86.1 fL (81-99); Mean Platelet Vol. 11.3 fl (6.2-12.0); Platelet Count 177 K/mm3 (150-450); RBC Distribution Width CV 12.7 % (11.6-14.6); RBC Distribution Width SD 39.7 fl (35.1-43.9); Red Blood Count 3.31 M/mm3 (4.2-5.4); White Blood Count 15.8 K/mm3 (4.4-11.0)
--- NOTE | 2019-04-07 07:44 | DCINST_ITS ---
Additional Instructions: If you experience any of the following, contact your healthcare provider. * Bleeding that soaks a pad every hour for 2 hours * Fever 100.4 or higher * Unrelieved incision or abdominal pain * Swelling, redness, discharge or bleeding from your incision or episiotomy site * Your incision begins to separate * Problems urinating (including inability to urinate or burning while urinating). * Visual changes * Severe headache * Flu-like symptoms * Pain or redness in one of both of your breasts * Pain, warmth, tenderness or swelling in your legs, especially the calf area * Frequent nausea and vomiting * Symptoms of depression or anxiety If you experience any of the following, call 911 or go to the nearest Emergency Room. * Chest pain * Problems breathing * Seizure activity * Partial or complete paralysis of a body part, slurred speech, weakness or drooping of the face, or a sudden inability to walk or hold your balance Allergies/Adverse Reactions: Allergies No Known Allergies Allergy (Verified 04/05/19 09:39) Medications to take at Discharge Vits [Prenatabs FA ] 1 tab PO DAILY 04/05/19 Follow-Up: Call to make an appointment with your doctor for an incision check in 1-2 weeks. You will also need a 6 week post- follow up appointment. Test results from this visit will be discussed in further detail at your follow- up appointment, if applicable. Primary Care Physician: Care Physician,No Primary [Primary Care Provider] -
--- NOTE | 2019-04-07 07:44 | PCM.DCCSEC ---
Additional Instructions: If you experience any of the following, contact your healthcare provider. Bleeding that soaks a pad every hour for 2 hours Fever 100.4 or higher Unrelieved incision or abdominal pain Swelling, redness, discharge or bleeding from your incision or episiotomy site Your incision begins to separate Problems urinating (including inability to urinate or burning while urinating). Visual changes Severe headache Flu-like symptoms Pain or redness in one of both of your breasts Pain, warmth, tenderness or swelling in your legs, especially the calf area Frequent nausea and vomiting Symptoms of depression or anxiety If you experience any of the following, call 911 or go to the nearest Emergency Room. Chest pain Problems breathing Seizure activity Partial or complete paralysis of a body part, slurred speech, weakness or drooping of the face, or a sudden inability to walk or hold your balance Allergies/Adverse Reactions: Allergies No Known Allergies Allergy (Verified 04/05/19 09:39) Medications to take at Discharge Vits [Prenatabs FA ] 1 tab PO DAILY 04/05/19 Follow-Up: Call to make an appointment with your doctor for an incision check in 1-2 weeks. You will also need a 6 week post- follow up appointment. Test results from this visit will be discussed in further detail at your follow-up appointment, if applicable. Primary Care Physician: Care Physician,No Primary [Primary Care Provider] -
--- NOTE | 2019-04-07 07:49 | PCM.PN.OB ---
Patient Problems: Active and Suspected Problems (Last Reviewed 04/05/19 @ 08:45 by Yaz Hernandez) Oligohydramnios (Acute) Cephalopelvic disproportion (Acute) Subjective: doing well no complaints pain controlled no CP SOB N V tolerating po lochia moderate, going well - Physical Exam General: Alert, Oriented x3 Abdomen: Soft, Non-Distended, - - FF below U. Minimal discomfort with exam. Dressing dry and intact Vital Signs Temp Pulse Resp BP Pulse Ox 98.3 F 100 16 101/56 L 94 04/07/19 03:30 04/07/19 06:45 04/07/19 06:45 04/07/19 03:30 04/07/19 06:45 Oxygen Delivery Method Room Air Weight: 158 lb 1.143 oz Body Mass Index (BMI) 28.0 Intake and Output for Last 24 Hours 04/05/19 04/06/19 04/07/19 23:59 23:59 23:59 Intake Total 1189.69 / 1189.69 7091.50 / 7091.50 628.33 / 628.33 Output Total 1600 / 1600 2375 / 2375 200 / 200 Balance -410.31 / -410.31 4716.50 / 4716.50 428.33 / 428.33 Laboratory Tests Past 24 Hrs 04/07/19 04:43 WBC 15.8 H RBC 3.31 L Hgb 9.3 L Hct 28.5 L MCV 86.1 MCH 28.1 MCHC 32.6 RDW Std Deviation 39.7 RDW Coeff of John 12.7 Plt Count 177 MPV 11.3 Medical Necessity - Tobacco Use Smoking Status: Never smoker Assessment/Plan All Active Problems (Last Reviewed 04/05/19 @ 08:45 by Yaz Hernandez) Oligohydramnios (Acute) Cephalopelvic disproportion (Acute) (Acute) Supervision of normal first (Acute) s/p LTCS PPD # 1 1. routine post care-ambulate this AM 2. breast feeding- support given 3. rh positive 4. rubella immune
[2019-04-07] MEDS: Senna/Docusate Sodium 1 Tablet PO (10:19)
[2019-04-07] MEDS: 0.9% Saline Lock 10 ML Syringe IV ×3 (10:20→21:49)
[2019-04-08 02:30] VITALS: BP 107/57; PULSE 105; RESP 18; TEMP 37.3
[2019-04-08] MEDS: Ketorolac 30 MG/ML Syringe IV ×3 (03:55→15:51)
[2019-04-08] MEDS: 0.9% Saline Lock 10 ML Syringe IV ×3 (03:56→15:50)
[2019-04-08 08:00] VITALS: BP 114/71; PULSE 90; RESP 20; TEMP 36.6
--- NOTE | 2019-04-08 09:42 | PCM.PN.OB ---
Patient Problems: Active and Suspected Problems (Last Reviewed 04/05/19 @ 08:45 by Yaz Hernandez) Oligohydramnios (Acute) Cephalopelvic disproportion (Acute) Subjective: doing well no complaints pain controlled no CP SOB N V ambulating well tolerating po lochia moderate, going well - Physical Exam General: Alert, Oriented x3 Vital Signs Temp Pulse Resp BP Pulse Ox 99.1 F 105 H 18 107/57 L 96 04/08/19 02:30 04/08/19 02:30 04/08/19 02:30 04/08/19 02:30 04/07/19 14:00 Oxygen Delivery Method Room Air Weight: 158 lb 1.143 oz Body Mass Index (BMI) 28.0 Intake and Output for Last 24 Hours 04/06/19 04/07/19 04/08/19 23:59 23:59 23:59 Intake Total 7091.50 / 7091.50 1391.66 / 1391.66 Output Total 2375 / 2375 2550 / 2550 Balance 4716.50 / 4716.50 -1158.34 / -1158.34 Medical Necessity - Tobacco Use Smoking Status: Never smoker Assessment/Plan All Active Problems (Last Reviewed 04/05/19 @ 08:45 by Yaz Hernandez) Oligohydramnios (Acute) Cephalopelvic disproportion (Acute) (Acute) Supervision of normal first (Acute) s/p LTCS PPD # 2 1. routine post care 2. breast feeding- support given 3. rh positive 4. rubella immune
[2019-04-08] MEDS: Senna/Docusate Sodium 1 Tablet PO (10:17)
[2019-04-08 14:00] VITALS: BP 123/76; PULSE 91; RESP 16; TEMP 36.4
[2019-04-08] MEDS: Naproxen 250 MG Tablet PO (20:48)
[2019-04-08 20:49] VITALS: BP 127/76; PULSE 85; RESP 16; TEMP 36.8
[2019-04-08] MEDS: Acetaminophen 500 MG Tablet 1000 MG PO (22:26)
[2019-04-09] MEDS: oxyCODONE 5 MG Tablet PO (01:55)
[2019-04-09 03:00] VITALS: BP 110/66; PULSE 83; RESP 16; TEMP 36.4
[2019-04-09] MEDS: Naproxen 250 MG Tablet PO (09:22)
[2019-04-09] MEDS: Senna/Docusate Sodium 1 Tablet PO (09:23)
--- NOTE | 2019-04-09 09:30 | PCM.PN.OB ---
Patient Problems: Active and Suspected Problems (Last Reviewed 04/05/19 @ 08:45 by Yaz Hernandez) Oligohydramnios (Acute) Cephalopelvic disproportion (Acute) Subjective: doing well no complaints pain controlled no CP SOB N V ambulating well tolerating po lochia moderate, going well - Physical Exam General: Alert, Oriented x3 Vital Signs Temp Pulse Resp BP Pulse Ox 97.5 F L 83 16 110/66 96 04/09/19 03:00 04/09/19 03:00 04/09/19 03:00 04/09/19 03:00 04/07/19 14:00 Oxygen Delivery Method Room Air Weight: 158 lb 1.143 oz Body Mass Index (BMI) 28.0 Intake and Output for Last 24 Hours 04/07/19 04/08/19 04/09/19 23:59 23:59 23:59 Intake Total 1391.66 / 1391.66 0 / 0 Output Total 2550 / 2550 Balance -1158.34 / -1158.34 0 / 0 Medical Necessity - Tobacco Use Smoking Status: Never smoker Assessment/Plan All Active Problems (Last Reviewed 04/05/19 @ 08:45 by Yaz Hernandez) Oligohydramnios (Acute) Cephalopelvic disproportion (Acute) (Acute) Supervision of normal first (Acute) s/p LTCS PPD # 3 1. routine post care 2. breast feeding- support given 3. rh positive 4. rubella immune
--- NOTE | 2019-04-09 14:03 | NURSING ---
1210 Discharged to home with baby. States she is ready to go home and feels able to care for herself and her infant. Significant other helpful and involved with care of .
== END 2019-04-09 12:10 | disposition home or self-care (01) | DRG 788 ==
PROVIDERS: Admitting Provider Obstetrics & Gynecology; Referring Provider Obstetrics & Gynecology; Visit Provider Obstetrics & Gynecology
DX: O41.03X0 Oligohydramnios, third trimester, not applicable or unspecified (principal); O33.9 Maternal care for disproportion, unspecified; O32.4XX0 Maternal care for high head at term, not applicable or unspecified; O69.1XX0 Labor and delivery complicated by cord around neck, with compression, not applicable or unspecified; O76 Abnormality in fetal heart rate and rhythm complicating labor and delivery; Z3A.40 40 weeks gestation of pregnancy; Z37.0 Single live birth
CPT/HCPCS: 59025; 59050; 85025; 85027; 86850; 86900; 86901; 99218; J7120; A4216; G0378; J2405

== ENCOUNTER → 2020-05-29 14:08 | Outpatient (CLI) | payer BC, SELFPAY ==
[2019-05-17 13:22] VITALS: BMI 28.0
[2020-05-29 15:08] LABS: hCG Titer Quant., Serum 22473 mIU/mL (1-3)
== END ==
PROVIDERS: Referring Provider Obstetrics & Gynecology; Visit Provider Obstetrics & Gynecology
DX: N91.2 Amenorrhea, unspecified (principal)
CPT/HCPCS: 36415; 84702

== ENCOUNTER → 2020-06-01 12:01 | Outpatient (CLI) | payer BC, SELFPAY ==
[2019-05-17 13:22] VITALS: BMI 28.0
--- NOTE | 2020-06-01 12:03 | US_ITS ---
STUDY: SECOND AND THIRD TRIMESTER OBSTETRICAL ULTRASOUND - LIMITED REASON FOR EXAM: Female, 29 years old DATING -- LMP 2018 DUE TO PRIOR AND BREAST FEEDING LMP: Unknown. PRIOR ULTRASOUND: None. TECHNIQUE: Transabdominal TECHNICAL QUALITY: Adequate. FINDINGS: There is a single intrauterine fetus. The fetus is in a transverse lie with the head on the maternal right side. There is demonstrated cardiac activity with a heart rate of 152 bpm. There is a normal amniotic fluid volume. The largest amniotic fluid pocket measures 5.4 cm x 5.1 cm. The amniotic fluid index (KARLA) is within normal limits. The placenta is anterior in location and is not low lying. There are Grade 0 placental changes. The cervix measures 3.7 cm in length. BIOMETRY: BPD: 6.29 cm: 25 weeks, 3 days HC: 23.7 cm: 25 weeks, 4 days AC: 21.19 cm: 25 weeks, 4 days FL: 4.74 cm: 25 weeks, 5 days age by current US: 25 weeks, 4 days. SANA by current US: 09/10/2020. Estimated weight: 851 grams, +/- 128 grams, 47 percentile. US/OB Limited With Biometrics IMPRESSION: Single live intrauterine gestation with mean gestational age of 25 weeks and 4 days. Electronically Signed: Ari Bain, at 8:20 EST , Service support ,
== END ==
PROVIDERS: Referring Provider Obstetrics & Gynecology; Visit Provider Obstetrics & Gynecology
DX: Z36.87 Encounter for antenatal screening for uncertain dates (principal); Z3A.25 25 weeks gestation of pregnancy
CPT/HCPCS: 76816

== ENCOUNTER → 2020-06-04 16:22 | Outpatient (CLI) | payer BC, SELFPAY ==
[2020-06-04 11:21] VITALS: BMI 23.0
[2020-06-04 18:54] LABS: Amphetamine Urine VISTA NEGATIVE (<1000 ng/mL); Barbiturate Urine VISTA NEGATIVE (< 200 ng/mL); Benzodiazepine Urine VISTA NEGATIVE (< 200 ng/mL); Cocaine Urine VISTA NEGATIVE (< 300 ng/mL); Ecstacy Urine VISTA NEGATIVE (< 500 ng/mL); Methadone Urine VISTA NEGATIVE (< 300 ng/mL); PCP Urine VISTA NEGATIVE (< 25 ng/mL); THC Urine VISTA NEGATIVE (< 50 ng/mL); Vista UDS pH Range 6
[2020-06-04 21:11] LABS: Chlamydia Trachomatis by PCR Negative (Negative); Neisserai gonorrhoeae by PCR Negative (Negative); Probe Check PASS; Sample Adequacy Control PASS; Specimen Processing Control PASS
== END ==
PROVIDERS: Referring Provider Obstetrics & Gynecology; Visit Provider Obstetrics & Gynecology
DX: Z34.90 Encounter for supervision of normal pregnancy, unspecified, unspecified trimester (principal)
CPT/HCPCS: 80307; 87086; 87088; 87491; 87591

== ENCOUNTER → 2020-06-25 11:08 | Outpatient (CLI) | payer BC, SELFPAY ==
[2020-06-04 11:21] VITALS: BMI 23.0
[2020-06-25 10:51] VITALS: BMI 23.5
[2020-06-25 12:12] LABS: Absolute Lymphocyte Count 1.61 X10^3/uL (0.83-4.51); Absolute Neutrophil Count 9.7 X10^3/uL (2.0-7.7); Basophil# 0.03 X10^3/uL; Basophil% 0.2 % (0-1); Eosinophil# 0.12 X10^3/uL; Hematocrit 33.3 % (37-47); Hemoglobin 11.3 g/dL (12.0-15.0); Lymphocyte # 1.61 X10^3/ul (4.0); Lymphocyte % 13.3 % (19-41); Mean Corp Hgb Conc 33.9 g/dL (32-36); Mean Corpuscular Hgb 31.5 pg (27.0-32.0); Mean Corpuscular Volume 92.8 fL (81-99); Mean Platelet Vol. 9.5 fl (6.2-12.0); Monocyte% 4.1 % (0-10); NRBC Flagged by Analyzer 0 % (0-5); Neutrophil % 80.1 % (47-70); Platelet Count 276 K/mm3 (150-450); RBC Distribution Width CV 11.8 % (11.6-14.6); RBC Distribution Width SD 39.8 fl (35.1-43.9); Red Blood Count 3.59 M/mm3 (4.2-5.4); White Blood Count 12.1 K/mm3 (4.4-11.0)
--- NOTE | 2020-06-25 12:24 | US_ITS ---
STUDY: SECOND AND THIRD TRIMESTER OBSTETRICAL ULTRASOUND REASON FOR EXAM: Female, 30 years old anatomy LMP: 12/04/2019 TECHNIQUE: Transabdominal TECHNICAL QUALITY: Adequate. PRIOR ULTRASOUND: 06/01/2020. FINDINGS: There is a single intrauterine fetus. The fetus is in a variable presentation. There is demonstrated cardiac activity with a heart rate of 148 bpm. There is a normal amniotic fluid volume. The largest amniotic fluid pocket measures 4.2 cm. The placenta is anterior in location and is not low lying. There are Grade 0 placental changes. The cervix measures 4.7 cm in length. The bilateral adnexal regions are normal. BIOMETRY: BPD: 7.4: 29 weeks, 4 days HC: 27.3: 29 weeks, 5 days AC: 24.3: 28 weeks, 3 days FL: 5.1: 29 weeks, 4 days CI: FL/BPD: FL/HC: FL/AC: HC/AC: age by current US: 29 weeks, 1 days. SANA by current US: 09/09/2020. Estimated weight: 1339 grams, +/- 198 grams, 36 %. age by prior US: 29 weeks, 0 days. SANA by prior US: 09/10/2020. Age by LMP: 29 weeks, 0 days. SANA by LMP: 09/10/2020. ANATOMY: Gender: Female Cranium: Normal lateral ventricles. Normal choroid plexus. Normal cerebellum. Normal cisterna magna. Normal face, nose and lips. Chest: Normal 4-chamber heart. Abdomen/Pelvis: Normal diaphragm. Normal stomach. Normal abdominal wall. Normal cord insertion. Normal 3 vessel cord. Normal kidneys. Normal bladder. Spine: Normal cervical spine. Normal thoracic spine. Normal lumbar spine. Normal sacrum. Extremities: Normal bilateral upper extremities. Normal bilateral lower extremities. US/OB Anatomy Scan IMPRESSION: Single live fetus in a variable presentation. No demonstrated anatomic abnormality. Placenta is grade 0 and is not low-lying. Cervix is closed. age by current US: 29 weeks, 1 days. SANA by current US: 09/09/2020. Estimated weight: 1339 grams, +/- 198 grams, 36 %. Electronically Signed: Cristian Nassar MD at 18:00 EST , Service support ,
[2020-06-25 12:41] LABS: Glucose Challenge Gest 1H 50g 115 mg/dL (70-140)
[2020-06-25 13:28] LABS: HIV - WCH Non-Reactive (Nonreactive); Hepatitis B Surface Antigen Non-Reactive (Nonreactive); Hepatitis C Antibody Non-Reactive (Nonreactive)
[2020-06-25 16:54] LABS: Chlamydia Trachomatis by PCR Negative (Negative); Neisserai gonorrhoeae by PCR Negative (Negative); Probe Check PASS; Specimen Processing Control PASS
[2020-06-25 16:55] LABS: Sample Adequacy Control PASS
[2020-06-27 08:48] LABS: Rubella IgG Reactive (Nonreactive)
[2020-06-28 05:07] LABS: Rapid Plasmin Reagin (RPR) NONREACTIVE (NONREACTIVE)
== END ==
PROVIDERS: Referring Provider Obstetrics & Gynecology; Visit Provider Obstetrics & Gynecology
DX: Z34.90 Encounter for supervision of normal pregnancy, unspecified, unspecified trimester (principal)
CPT/HCPCS: 36415; 76805; 82950; 85025; 86592; 86703; 86762; 86803; 86850; 86900; 86901; 87340; 87491; 87591

== ENCOUNTER → 2020-08-24 16:26 | Outpatient (CLI) | payer BC, SELFPAY ==
[2020-08-24 13:36] VITALS: BMI 24.7
== END ==
PROVIDERS: Referring Provider Obstetrics & Gynecology; Visit Provider Obstetrics & Gynecology
DX: Z34.93 Encounter for supervision of normal pregnancy, unspecified, third trimester (principal); Z3A.36 36 weeks gestation of pregnancy
CPT/HCPCS: 87081

== ENCOUNTER → 2020-08-31 17:12 | Outpatient (CLI) | payer BC, SELFPAY ==
[2020-08-10 13:53] VITALS: BMI 24.5
[2020-08-31 13:43] VITALS: BMI 25.0
== END ==
PROVIDERS: Visit Provider Nurse Practitioner Women's Health
DX: Z34.90 Encounter for supervision of normal pregnancy, unspecified, unspecified trimester (principal)
CPT/HCPCS: 87635; C9803; U0005; U0003

== ENCOUNTER 2020-09-04 09:40 | Inpatient (IN) | payer BC, SELFPAY ==
[2020-06-04 11:21] VITALS: BMI 23.0
[2020-08-31 13:43] VITALS: BMI 25.0
[2020-09-04] VITALS (16 sets, daily range): BP systolic 96–127; BP diastolic 45–79; PULSE 74–104; RESP 14–18; TEMP 36.3–36.9; O2SAT 95–100; BMI 25.6
--- NOTE | 2020-09-04 07:52 | HP.PCM_ITS ---
- Problem List (1) 36 weeks gestation of Status: Acute Comment: electronic covid test ordered 08/17/20 (scheduled on 08/31/20 at 1630) (2) History of delivery Status: Acute Comment: plan RLTCS with SM on 09/04/20 (3) Lab test negative for COVID-19 virus Status: Acute Comment: 09/03/20 (4) Late care affecting Status: Acute Qualifiers: Comment: 1st visit 25 weeks. repeat us/full anatomy beginning of july (5) Status: Acute Qualifiers: Comment: genetic and carrier screening declined. anatomy US nl. (6) Supervision of normal , antepartum Status: Acute Qualifiers: Comment: PRR SANA 09/10/20 girl Bea Sunshine Ranulfo History and Physical Date of Admission: 09/04/20 Intake Vital Signs 08/31/20 Height 5 ft 4 in 08/31/20 Weight: 146 lb 08/31/20 BMI 25.0 08/31/20 BP 120/80 Intake Visit Reasons: 37WK OB Chief Complaint: est ob Silk Screen Layout Drafter Required: No Is patient in pain?: No Allergies No Known Allergies Allergy (Verified 08/31/20 13:43) Medications Vits [Prenatabs FA ] 1 tab PO DAILY 04/05/19 [History Confirmed 08/31/20] Last Menstral Period: 06/26/18 Zika: Zika virus screening: Negative : No PFSH PFSH Surgical History delivery delivered (Acute) History of elbow surgery (Acute) History of wisdom tooth extraction, class II edentulism (Acute) Family History Grandmother Alzheimer's dementia Social History (Updated 08/31/20 @ 13:[address] Carolyn Dennis MD) Smoking Status: Never smoker alcohol intake: never substance use type: does not use caffeine: Yes what type of physical activity do you participate in: yoga frequency: daily seatbelt use: always do you feel safe at home: Yes additional social history: Ranulfo- Patient works at [employer] Pregancy History 2 Elective abortions Hx Para 1 Spontaneous abortions Hx # Term Pregnancies Ectopic pregnancies Hx # Pregnancies Multiple births # of living children 1 Past Pregnancies Del. Date Name GA/Weeks Outcome Route Bth Weight Gen Labor Lgth Anesthesia Del Locatn Provider FOB 04/06/19 Bita 40 live - full term C- section Male spinal [facility] Delivery Date: 04/06/19 LTCS; True CPD; AoD; Failure to progress; [place] AleksandraCelia HPI 37WK OB : Details: HANSA LOPEZ is a 30 year old who presents for RLTCS declined TOLAC. OB Visit SANA Calculator Estimated Delivery Date Method Current WG Current Estimate 09/10/20 Manual 38w 4d Expected Delivery Route/Plan LTCS with SM o 09/04/20 Labor Preferences- CB/BF classes: no labor support person: ranulfo labor intervention preferences: rltcs pain management options preferred: rltcs cut cord/dad catch: : yes PP control planned: discussed possible routes of delivery and associated risks: [] special requests: [] Specific Issue/Plans flu vaccine: declined. tdap vaccine: given rhogam: na LARC form signed: declined movement and labor precautions reviewed. Problem list reviewed and updated with the most current plan of care details and appropriate orders placed. Relevant counseling for the gestational age provided. Continue routine care and follow up unless otherwise noted in visit notes/problem list details Initial Weight: Not Recorded Date EGA Weight BP Urine Prot Glucose FHR FuHt Pres Dilation Effaced St Visit Note 06/04/20 26w 0d 134 lb 122/68 150 SM- no vb cramping, late PNC due to not knowing she was . 06/25/20 29w 0d 137 lb 120/70 Negative Negative 145 SM- gct today. no vb lof good fm no regular ctx 07/13/20 31w 4d 107/70 Negative Negative 145 SM- no vb lof good fm no reuglar ctx 07/25/20 33w 2d 139 lb 4 oz 114/72 Negative Negative 154 33 MH-No VB, LOF. Good FM. Denies concerns. 08/10/20 35w 4d 143 lb 122/80 Negative Negative 150 Sm- no vb lof good fm no regular ctx 08/24/20 37w 4d 144 lb 124/88 Negative Negative 135 SM- no vb lof good fm nor egular ctx gbs today 08/31/20 38w 4d 146 lb 120/80 Negative Negative 140 38 SM- no vb lof good fm no regular ctx preop for cs ACOG First Trimester First Trimester: Desire for , Alcohol, Tobacco Cessation, Illicit/Recreational Drug/Substance Use, Intimate Partner Violence, Barriers to care, Unstable Housing, Communication Barriers, Environmental/Work Hazards, Anticipated Course of Care, Toxoplasmosis Precations, Use of Any medications, Sexual activity, Exercise, Dental Care, Sauna/Hot tub use, Seat Belt use, Childbirth classes/Hospital facilities, , Travel, Indications for US and Screening for Aneuploidy Second Trimester Second Trimester: Signs and Symptoms of Labor, Selecting a care provider, Reproductive Life Planning, Care Planning, Tobacco Cessation, Depression/Anxiety and Intimate Partner Violence Third Trimester Third Trimester: Pain Management Plans, Labor support person(s), Immediate Larc and Movement Monitoring; discussed Trial of Labor after Counseling or discussed Circumcision preference Diagnostics Diagnostics Diagnostics Blood Type O POSITIVE 06/25/20 Antibody Screen NEGATIVE 06/25/20 Glucose 1 Hr 50 gm 115 mg/dL (70-140) 06/25/20 HIV 1&2 Antibody Non-Reactive (Nonreactive) 06/25/20 Rubella IgG Antibody Reactive (Nonreactive) 06/25/20 Hgb 11.3 g/dL (12.0-15.0) L 06/25/20 Hct 33.3 % (37-47) L 06/25/20 RPR NONREACTIVE (NONREACTIVE) 06/25/20 Details: HIV: Urine Culture: Sequential Screen: NIPT Screen: ROS Const Reports system reviewed and no additional complaints, except as docu Card Reports system reviewed and no additional complaints, except as docu Resp Reports system reviewed and no additional complaints, except as docu GI Reports system reviewed and no additional complaints, except as docu, Reports nausea Reports system reviewed and no additional complaints, except as docu Musc Reports system reviewed and no additional complaints, except as docu Exam Const General: cooperative, healthy appearing, comfortable, anxious HENMT Head: normal to inspection Nose: external nose normal Face and sinus: normal facial exam Neck Neck: normal visual inspection, full ROM, no lymphadenopathy Thyroid: thyroid normal Chest Chest palpation & inspection: normal inspection of the chest Resp Effort & Inspection: normal respiratory effort GI Inspection: normal to inspection Palpation: soft, other (gravid uterus) Other: vertex and appropriate size for gestational age Other: Cervical Exam: Extrem General: pedal edema Results POC Urinalysis 2 Dip (Clinic) Office Urine Glucose Negative Last Edit by Yaz Hernandez on 08/31/20 13:4 7 Office Urine Protein Negative Last Edit by Yaz Hernandez on 08/31/20 13:4 7 Assessment & Plan Problems 1. History of delivery Z98.891 plan RLTCS with SM on 09/04/20 2. Supervision of normal , antepartum Z34.90 PRR SANA 09/10/20 girl Bea Sunshine Ranulfo 3. Z34.90 genetic and carrier screening declined. anatomy US nl. 4. 36 weeks gestation of Z3A.36 electronic covid test ordered 08/17/20 (scheduled on 08/31/20 at 1630) 5. Late care affecting O09.30 1st visit 25 weeks. repeat us/full anatomy beginning of july plan RLTCS After discussing the patient's diagnosis and treatment plan options, patient wishes to proceed with surgical management. I have discussed with the patient the risks, benefits, and alternatives of the procedure which include but are not limited to risks of anesthesia, bleeding, infection, possible damage to bowel, bladder, or surrounding vasculature which could lead to additional surgery to evaluate any complications. Patient agrees to procedure and wishes to proceed. ACOG/uptodate references given for additional information regarding procedure. Orders Orders: POC Urinalysis 2 Dip (Clinic) Today Coding Level of Care Code OB Routine Diagnoses History of delivery Z98.891 Supervision of normal , antepartum Z34.90 Z34.90 36 weeks gestation of Z3A.36 Late care affecting O09.30
[2020-09-04] MEDS: Lactated Ringers 1,000 ML 999 ML IV (10:00)
--- NOTE | 2020-09-04 10:23 | OP.PCM_ITS ---
Problem List (1) 36 weeks gestation of Status: Acute Comment: electronic covid test ordered 08/17/20 (scheduled on 08/31/20 at 1630) (2) History of delivery Status: Acute Comment: plan RLTCS with SM on 09/04/20 (3) Lab test negative for COVID-19 virus Status: Acute Comment: 09/03/20 (4) Late care affecting Status: Acute Qualifiers: Comment: 1st visit 25 weeks. repeat us/full anatomy beginning of july (5) Status: Acute Qualifiers: Comment: genetic and carrier screening declined. anatomy US nl. (6) Supervision of normal , antepartum Status: Acute Qualifiers: Comment: PRR SANA 09/10/20 girl Bea ILDA Sunshine Ranulfo Delivery Classification: Scheduled Final SANA: 09/10/20 Gestational age: 39 Weeks and 1 Days Type of Anesthesia:: Spinal Special Medications: none Implants Used: none Date of Procedure: 09/04/20 Pre-Operative Diagnosis: previous Indications for : Repeat Elective Description of Procedure: Spinal anesthesia was placed without difficulty. Meng catheter was placed. The patient was placed in the dorsal supine position with leftward tilt. Patient was prepped and draped in the normal sterile fashion. Pfannenstiel skin incision was made with the scalpel and carried through to the underlying layer of fascia with the scalpel. Fascia was nicked in the midline and the incision extended laterally. The rectus bellies were dissected off superiorly and inferiorly with out complication both sharply and bluntly. The peritoneum was entered digitally. The incision was stretched and a low transverse uterine incision was made with the scalpel. The infant's head was delivered atraumatically followed by the anterior and posterior shoulders without complication the rest of the infant delivered. The cord was clamped and cut and the was handed off to awaiting nurse. The placenta was delivered spontaneously immediately following and was noted to be intact and have a three- vessel cord. The uterus was exteriorized cleared of all clots and debris, and the incision was closed in a double layer closure using #1 Monocryl. The ovaries and fallopian tubes were noted to be within normal limits. The uterus was returned to the maternal abdomen and gutters were cleared of all clots and debris. The peritoneum was closed with 3-0 Monocryl in a running fashion. Gloves were changed prior to fascial closure. Fascia was closed with 0 PDS in a running fashion. Subcutaneous tissue was copiously irrigated and the skin was closed with 3-0 Monocryl in a subcuticular fashion. Mepilex dressing was applied without complication. Patient was taken to recovery in stable condition. It was discussed with the patient that based on the clinical information obtained during this encounter, combined with her history, at this time I would recommend cesareans for future deliveries if further pregnancies are desired. Amniotic Membrane Rupture Type: Artificial Amniotic Fluid Description: Clear Placenta Disposition: [facility] Inf[facility] Gender: Female Delayed cord clamping: Yes Antibiotic Given: Ancef 2 grams IV x1 Pt instructed on risks of surgery: Bleeding, Anesthesia Risks, Infection, Need for Future C-Sections, Injury to surrounding structure(s) including bowel and bladder Multi Select Codes - Urinary/Genital Urinary/Genital CPT Codes: 50924 Delivery [facility]
[2020-09-04] MEDS: Acetaminophen 500 MG Tablet 1000 MG PO ×3 (10:25→20:43)
--- NOTE | 2020-09-04 10:28 | PCM.DCCSEC ---
Discharge Diet: No Restrictions Discharge Activity: May Not Drive - for 2 weeks, May not drive while taking narcotic pain medications., May Shower, May Take a Tub Bath - in 7 days May resume sexual activity in: 4-6 weeks Lifting Restrictions: 20 pounds Additional Activity Instructions:: Nothing in the vagina for 4-6 weeks. You may return to work/school in 6 weeks. Call your doctor if your incision/area has: Continuous Slow Oozing, Sudden Increased Bleeding, Increased Pain/ Swelling, Increased Redness, Foul Smelling Discharge Call your doctor if you observe: Fever of 101 or Higher, Using more than one pad per hour - for 2 hours Suture Line Care: Avoid Pulling/Pushing, Avoid Pinching/Bending Cleanse incision/area with: Keep Dressing Clean & Dry Additional Instructions: If you experience any of the following, contact your healthcare provider. Bleeding that soaks a pad every hour for 2 hours Fever 100.4 or higher Unrelieved incision or abdominal pain Swelling, redness, discharge or bleeding from your incision or episiotomy site Your incision begins to separate Problems urinating (including inability to urinate or burning while urinating). Visual changes Severe headache Flu-like symptoms Pain or redness in one of both of your breasts Pain, warmth, tenderness or swelling in your legs, especially the calf area Frequent nausea and vomiting Symptoms of depression or anxiety If you experience any of the following, call 911 or go to the nearest Emergency Room. Chest pain Problems breathing Seizure activity Partial or complete paralysis of a body part, slurred speech, weakness or drooping of the face, or a sudden inability to walk or hold your balance Allergies/Adverse Reactions: Allergies No Known Allergies Allergy (Verified 09/04/20 10:01) Medications to take at Discharge Vits [Prenatabs FA ] 1 tab PO DAILY 04/05/19 Naproxen [Naprosyn] 250 - 500 mg PO Q8H PRN PRN #30 tab 09/04/20 Oxycodone HCl/Acetaminophen [Percocet 5-325] 1 - 2 tablet PO Q6H PRN PRN 7 Days #15 tablet 09/04/20 The following prescriptions were given: Naproxen [Naprosyn] 250 - 500 mg PO Q8H PRN PRN #30 tab PRN Reason: MILD PAIN Transmission Status: Pending to [facility] Oxycodone HCl/Acetaminophen [Percocet 5-325] 1 - 2 tablet PO Q6H PRN PRN 7 Days #15 tablet PRN Reason: Pain Transmission Status: Sent to [facility] Follow-Up: Call to make an appointment with your doctor for an incision check in 1-2 weeks. You will also need a 6 week post- follow up appointment. Test results from this visit will be discussed in further detail at your follow-up appointment, if applicable. Please Follow Up With: Carolyn Dennis MD - Call to make an appointment for an incision check in 1-2 [phone] When: You will need a post- check in 6 weeks. Primary Care Physician: Care Physician,No Primary [Primary Care Provider] -
[2020-09-04 10:36] LABS: Absolute Neutrophil Count 7.3 X10^3/uL (2.0-7.7); Basophil# 0.03 X10^3/uL; Basophil% 0.3 % (0-1); Eosinophil# 0.05 X10^3/uL; Eosinophils% 0.5 % (0-5); Hematocrit 31.2 % (37-47); Lymphocyte % 14.9 % (19-41); Mean Corp Hgb Conc 32.1 g/dL (32-36); Mean Corpuscular Hgb 25.8 pg (27.0-32.0); Mean Corpuscular Volume 80.6 fL (81-99); Mean Platelet Vol. 11.2 fl (6.2-12.0); Monocyte# 0.57 X10^3/uL; Monocyte% 6.1 % (0-10); NRBC Flagged by Analyzer 0 % (0-5); Neutrophil # 7.34 X10^3/uL (2.7-7.7); Neutrophil % 77.9 % (47-70); Platelet Count 250 K/mm3 (150-450); RBC Distribution Width CV 12.3 % (11.6-14.6); RBC Distribution Width SD 35.9 fl (35.1-43.9); Red Blood Count 3.87 M/mm3 (4.2-5.4); White Blood Count 9.4 K/mm3 (4.4-11.0)
[2020-09-04] MEDS: Lactated Ringers 1,000 ML 150 ML IV (11:30)
[2020-09-04] MEDS: Sodium Citrate/Citric Acid 30 ML UDC PO (11:43)
[2020-09-04] MEDS: Oxytocin 30 units/NS 500 ml 30 UNITS/500 ML IV.SOLN 167 UNITS IV (13:29)
[2020-09-04] MEDS: Lactated Ringers 1,000 ML 100 ML IV (15:20)
[2020-09-04] MEDS: Ketorolac 30 MG/ML Syringe IV (18:32)
[2020-09-05 00:23] VITALS: BP 112/66; PULSE 89; RESP 16; TEMP 36.6; O2SAT 96
[2020-09-05] MEDS: Ketorolac 30 MG/ML Syringe IV ×3 (00:26→12:18)
[2020-09-05] MEDS: 0.9% Saline Lock 10 ML Syringe IV ×3 (00:27→12:19)
[2020-09-05] MEDS: Acetaminophen 500 MG Tablet 1000 MG PO ×4 (03:13→23:49)
[2020-09-05 03:20] VITALS: BP 99/62; PULSE 86; RESP 16; TEMP 36.9
[2020-09-05 06:23] LABS: Hematocrit 27.9 % (37-47); Mean Corp Hgb Conc 32.3 g/dL (32-36); Mean Corpuscular Hgb 26.2 pg (27.0-32.0); Mean Corpuscular Volume 81.1 fL (81-99); Mean Platelet Vol. 10.3 fl (6.2-12.0); Platelet Count 215 K/mm3 (150-450); RBC Distribution Width CV 12.4 % (11.6-14.6); RBC Distribution Width SD 36.8 fl (35.1-43.9); Red Blood Count 3.44 M/mm3 (4.2-5.4); White Blood Count 7.9 K/mm3 (4.4-11.0)
[2020-09-05 08:00] VITALS: BP 105/64; PULSE 76; RESP 16; TEMP 36.6
--- NOTE | 2020-09-05 08:01 | PCM.PN.OB ---
Patient Problems: Active and Suspected Problems (Last Reviewed 08/31/20 @ 13:44 by Yaz Hernandez) Lab test negative for COVID-19 virus (Acute) 09/03/20 36 weeks gestation of (Acute) electronic covid test ordered 08/17/20 (scheduled on 08/31/20 at 1630) Late care affecting (Acute) 1st visit 25 weeks. repeat us/full anatomy beginning of july (Acute) genetic and carrier screening declined. anatomy US nl. Supervision of normal , antepartum (Acute) PRR SANA 09/10/20 girl Bea Sunshine Ranulfo History of delivery (Acute) plan RLTCS with SM on 09/04/20 Subjective: Patient doing well without complaints. Tolerating PO. Ambulating and voiding without difficulty. Breast feeding well. Denies chest pain, shortness of breath, calf pain/swelling, fevers, chills, lightheadedness. Objective: Laboratory Tests 09/05/20 09/04/20 09/04/20 Range/Units 06:15 10:00 10:00 WBC 7.9 9.4 (4.4-11.0) K/mm3 RBC 3.44 L 3.87 L (4.2-5.4) M/mm3 Hgb 9.0 L 10.0 L (12.0-15.0) g/dL Hct 27.9 L 31.2 L (37-47) % MCV 81.1 80.6 L (81-99) fL MCH 26.2 L 25.8 L (27.0-32.0) pg MCHC 32.3 32.1 (32-36) g/dL RDW Std Deviation 36.8 35.9 (35.1-43.9) fl RDW Coeff of John 12.4 12.3 (11.6-14.6) % Plt Count 215 250 (150-450) K/mm3 MPV 10.3 11.2 (6.2-12.0) fl Immature Gran % (Auto) 0.300 (0.0-0.9) % Neut % (Auto) 77.9 H (47-70) % Lymph % (Auto) 14.9 L (19-41) % Ector % (Auto) 6.1 (0-10) % Eos % (Auto) 0.5 (0-5) % Baso % (Auto) 0.3 (0-1) % Absolute Neuts (auto) 7.3 (2.0-7.7) X10^3/uL Absolute Lymphs (auto) 1.40 (0.83-4.51) X10^3/uL Nucleated RBC % 0 (0-5) % Blood Type O POSITIVE Antibody Screen NEGATIVE - Physical Exam Vitals/I&O's: Vital Signs Temp Pulse Resp BP Pulse Ox 98.5 F 86 16 99/62 96 09/05/20 03:20 09/05/20 03:20 09/05/20 03:20 09/05/20 03:20 09/05/20 00:23 Oxygen Delivery Method Room Air Weight: 144 lb 8 oz Body Mass Index (BMI) 25.6 Intake and Output for Last 24 Hours 09/03/20 09/04/20 09/05/20 23:59 23:59 23:59 Intake Total 3266.45 / 3266.45 Output Total 1600 / 1600 500 / 500 Balance 1666.45 / 1666.45 -500 / -500 General: Alert, Oriented x3, Cooperative, No apparent distress, Well developed, Well nourished HEENT: Atraumatic, PERRLA, EOMI, Normocephalic Neck: Supple, No JVD Lungs: Normal air movement Cardiovascular: Regular rate Abdomen: Soft, Non Tender, Non-Distended, - - incision c/d/i with dressing in place, fundus firm Extremities: No edema, No Calf Tenderness Neurological: Cranial nerves II-XII grossly intact, Neuro grossly intact Psych/Mental Status: Normal Affect, Appropriate Laboratory Results 09/04/20 10:00: WBC 9.4, RBC 3.87 L, Hgb 10.0 L, Hct 31.2 L, MCV 80.6 L, MCH 25.8 L, MCHC 32.1, RDW Std Deviation 35.9, RDW Coeff of John 12.3, Plt Count 250, MPV 11.2, Immature Gran % (Auto) 0.300, Neut % (Auto) 77.9 H, Lymph % (Auto) 14.9 L, Ector % (Auto) 6.1, Eos % (Auto) 0.5, Baso % (Auto) 0.3, Absolute Neuts (auto) 7.3, Absolute Lymphs (auto) 1.40, Nucleated RBC % 0 09/04/20 10:00: Blood Type O POSITIVE, Antibody Screen NEGATIVE 09/05/20 06:15: WBC 7.9, RBC 3.44 L, Hgb 9.0 L, Hct 27.9 L, MCV 81.1, MCH 26.2 L, MCHC 32.3, RDW Std Deviation 36.8, RDW Coeff of John 12.4, Plt Count 215, MPV 10.3 Current Medications Acetaminophen (Acetaminophen 500 Mg Tablet) 1,000 mg PO Q6H [facility] Bisacodyl (Bisacodyl 10 Mg Suppository) 10 mg RECTAL UD PRN PRN Reason: If no BM Hydrocortisone (Hydrocortisone 2.5% Crm) 1 applic TOPICAL TID PRN PRN; Protocol PRN Reason: Discomfort Ketorolac Tromethamine (Ketorolac 30 Mg/Ml Syringe) 30 mg IV Q6H [facility] Stop: 09/05/20 12:31 Last Admin: 09/05/20 06:12 Dose: 30 mg Documented by: Methylergonovine Maleate (Methylergonovine 0.2 Mg/Ml Ampul) 0.2 mg IM X1 PRN PRN Reason: Uterine Atony Naproxen (Naproxen 250 Mg Tablet) 500 mg PO Q8H [facility] Ondansetron HCl (Ondansetron 4 Mg/2 Ml Vial) 4 mg IV Q4H PRN PRN PRN Reason: Nausea Oxycodone HCl (Oxycodone 5 Mg Tablet) 5 - 10 mg PO Q4H PRN PRN PRN Reason: Pain Score 4-10 Multivit/Folic Acid/Iron ( Vits Tablet) 1 tablet PO DAILY@1200 [facility] Prochlorperazine Edisylate (Prochlorperazine 10 Mg/2 Ml Vial) 10 mg IV Q6H PRN PRN PRN Reason: NAUSEA Senna/Docusate Sodium (Senna/Docusate Sodium 1 Tablet) 0 tablet PO DAILY [facility] Simethicone (Simethicone 80 Mg Tablet) 80 mg PO PCHS PRN PRN Reason: Indigestion/stomach pain Sodium Chloride (0.9% Saline Lock 10 Ml Syringe) 5 - 15 ml IV UD PRN PRN Reason: SALINE FLUSH Last Admin: 09/05/20 06:12 Dose: 10 ml Documented by: Medical Necessity - Tobacco Use Smoking Status: Never smoker Assessment/Plan All Active Problems (Last Reviewed 08/31/20 @ 13:44 by Yaz Hernandez) Lab test negative for COVID-19 virus (Acute) 36 weeks gestation of (Acute) Late care affecting (Acute) (Acute) Supervision of normal , antepartum (Acute) History of delivery (Acute) s/p LTCS PPD # 1 1. routine post care 2. breast feeding- support given 3. rh positive 4. rubella immune
[2020-09-05] MEDS: Prenatal Vits Tablet 1 TABLET PO (12:18)
[2020-09-05] MEDS: Senna/Docusate Sodium 1 Tablet PO (12:18)
[2020-09-05 14:00] VITALS: BP 105/63; PULSE 83; RESP 16; TEMP 36.8
[2020-09-05 20:43] VITALS: BP 111/59; PULSE 89; RESP 16; TEMP 37.1
[2020-09-05] MEDS: Naproxen 250 MG Tablet 500 MG PO (22:11)
[2020-09-06 02:34] VITALS: BP 98/60; PULSE 93; RESP 16; TEMP 36.9
[2020-09-06] MEDS: Naproxen 250 MG Tablet 500 MG PO (05:52)
[2020-09-06] MEDS: Acetaminophen 500 MG Tablet 1000 MG PO (05:52)
--- NOTE | 2020-09-06 07:21 | PCM.PN.OB ---
Patient Problems: Active and Suspected Problems (Last Reviewed 08/31/20 @ 13:44 by Yaz Hernandez) Lab test negative for COVID-19 virus (Acute) 09/03/20 36 weeks gestation of (Acute) electronic covid test ordered 08/17/20 (scheduled on 08/31/20 at 1630) Late care affecting (Acute) 1st visit 25 weeks. repeat us/full anatomy beginning of july (Acute) genetic and carrier screening declined. anatomy US nl. Supervision of normal , antepartum (Acute) PRR SANA 09/10/20 girl Bea Sunshine Ranulfo History of delivery (Acute) plan RLTCS with SM on 09/04/20 Subjective: Patient doing well without complaints. Tolerating PO. Ambulating and voiding without difficulty. feeding well. Denies chest pain, shortness of breath, calf pain/swelling, fevers, chills, lightheadedness. - Physical Exam Vitals/I&O's: Vital Signs Temp Pulse Resp BP Pulse Ox 98.5 F 93 16 98/60 96 09/06/20 02:34 09/06/20 02:34 09/06/20 02:34 09/06/20 02:34 09/05/20 00:23 Oxygen Delivery Method Room Air Weight: 144 lb 8 oz Body Mass Index (BMI) 25.6 Intake and Output for Last 24 Hours 09/04/20 09/05/20 09/06/20 23:59 23:59 23:59 Intake Total 3266.45 / 3266.45 Output Total 1600 / 1600 500 / 500 Balance 1666.45 / 1666.45 -500 / -500 General: Alert, Oriented x3 Current Medications Acetaminophen (Acetaminophen 500 Mg Tablet) 1,000 mg PO Q6H [facility] Last Admin: 09/06/20 05:52 Dose: 1,000 mg Documented by: Bisacodyl (Bisacodyl 10 Mg Suppository) 10 mg RECTAL UD PRN PRN Reason: If no BM Hydrocortisone (Hydrocortisone 2.5% Crm) 1 applic TOPICAL TID PRN PRN; Protocol PRN Reason: Discomfort Methylergonovine Maleate (Methylergonovine 0.2 Mg/Ml Ampul) 0.2 mg IM X1 PRN PRN Reason: Uterine Atony Naproxen (Naproxen 250 Mg Tablet) 500 mg PO Q8H [facility] Last Admin: 09/06/20 05:52 Dose: 500 mg Documented by: Ondansetron HCl (Ondansetron 4 Mg/2 Ml Vial) 4 mg IV Q4H PRN PRN PRN Reason: Nausea Oxycodone HCl (Oxycodone 5 Mg Tablet) 5 - 10 mg PO Q4H PRN PRN PRN Reason: Pain Score 4-10 Multivit/Folic Acid/Iron ( Vits Tablet) 1 tablet PO DAILY@1200 [facility] Last Admin: 09/05/20 12:18 Dose: 1 tablet Documented by: Prochlorperazine Edisylate (Prochlorperazine 10 Mg/2 Ml Vial) 10 mg IV Q6H PRN PRN PRN Reason: NAUSEA Senna/Docusate Sodium (Senna/Docusate Sodium 1 Tablet) 0 tablet PO DAILY [facility] Last Admin: 09/05/20 12:18 Dose: 1 tablet Documented by: Simethicone (Simethicone 80 Mg Tablet) 80 mg PO PCHS PRN PRN Reason: Indigestion/stomach pain Sodium Chloride (0.9% Saline Lock 10 Ml Syringe) 5 - 15 ml IV UD PRN PRN Reason: SALINE FLUSH Last Admin: 09/05/20 12:19 Dose: 10 ml Documented by: Medical Necessity - Tobacco Use Smoking Status: Never smoker Assessment/Plan All Active Problems (Last Reviewed 08/31/20 @ 13:44 by Yaz Hernandez) Lab test negative for COVID-19 virus (Acute) 36 weeks gestation of (Acute) Late care affecting (Acute) (Acute) Supervision of normal , antepartum (Acute) History of delivery (Acute) s/p LTCS PPD # 2 1. routine post care 2. breast feeding- support given 3. rh positive 4. rubella immune
[2020-09-06 08:30] VITALS: BP 100/58; PULSE 84; RESP 16; TEMP 36.6
== END 2020-09-06 10:30 | disposition home or self-care (01) | DRG 788 ==
PROVIDERS: Admitting Provider Obstetrics & Gynecology; Referring Provider Obstetrics & Gynecology; Visit Provider Obstetrics & Gynecology
PROC: 10D00Z1 Extraction of Products of Conception, Low, Open Approach (ICD-10-PCS; CPT 59514; principal; 2020-09-04 11:45)
DX: O34.211 Maternal care for low transverse scar from previous cesarean delivery (principal); Z3A.39 39 weeks gestation of pregnancy; Z37.0 Single live birth
CPT/HCPCS: 85025; 85027; 86850; 86900; 86901; 99218; J7120; A4216; G0378; J2405

== ENCOUNTER 2021-10-21 09:04 | Outpatient (CLI) | payer BC, SELFPAY ==
[2021-10-24 13:15] LABS: HPV APTIMA, High Risk Negative (Negative)
== END 2021-10-21 23:59 | disposition home or self-care (01) ==
LOC: LABSPEC 10-22 09:04
PROVIDERS: Visit Provider Obstetrics & Gynecology
DX: Z12.4 Encounter for screening for malignant neoplasm of cervix (principal)
CPT/HCPCS: 87624; 88175; G0145

== ENCOUNTER → 2022-01-29 | Outpatient (CLI) | payer BC, SELFPAY ==
--- NOTE | 2022-01-29 10:58 | US_ITS ---
STUDY: RENAL ULTRASOUND - COMPLETE REASON FOR EXAM: Female, 31 years old. UTI TECHNIQUE: Ultrasound evaluation of the kidneys was performed with real-time and static zamora-scale imaging. COMPARISON: None. FINDINGS: RIGHT KIDNEY: Normal location of the right kidney, which is normal in size. The right kidney measures 9.6 cm. There is a normal cortex of the right kidney. The renal cortex measures 1.6 cm. There is no right renal mass or cyst. There are no right renal calculi. There is no right hydronephrosis. DISTAL RIGHT URETER: There is non-visualization of the distal right ureter. There is no demonstrated right ureterovesical junction calculus. There is a visualized right ureteral jet. LEFT KIDNEY: Normal location of the left kidney, which is normal in size. The left kidney measures 9.6 cm. There is a normal cortex of the left kidney. The renal cortex measures 2.0 cm. There is no left renal mass or cyst. There are no left renal calculi. There is no left hydronephrosis. DISTAL LEFT URETER: There is non-visualization of the distal left ureter. There is no demonstrated left ureterovesical junction calculus. There is a visualized left ureteral jet. BLADDER: The distended urinary bladder has a volume of 605 ml. The empty urinary bladder has a volume of 68 ml. There is a normal wall thickness of the distended urinary bladder. There is no demonstrated mass within the urinary bladder. There are no demonstrated bladder calculi. US/Kidney and Bladder IMPRESSION: Normal ultrasound of the kidneys and urinary bladder. Electronically Signed: Kyaw Sylvester MD at 11:45 EDT ,
== END | disposition home or self-care (01) ==
LOC: US 10:56
PROVIDERS: Referring Provider Urology; Visit Provider Urology
DX: N39.0 Urinary tract infection, site not specified (principal)
CPT/HCPCS: 76770

== ENCOUNTER → 2022-03-26 | Outpatient (CLI) | payer BC, SELFPAY ==
[2022-03-26 10:11] LABS: Absolute Lymphocyte Count 1.37 X10^3/uL (0.83-4.51); Absolute Neutrophil Count 7.5 X10^3/uL (2.0-7.7); Basophil# 0.02 X10^3/uL; Basophil% 0.2 % (0-1); Eosinophil# 0.08 X10^3/uL; Eosinophils% 0.8 % (0-5); Hematocrit 37.2 % (37-47); Hemoglobin 13.1 g/dL (12.0-15.0); Lymphocyte # 1.37 X10^3/ul (0.83-4.51); Lymphocyte % 14.3 % (19-41); Mean Corp Hgb Conc 35.2 g/dL (32-36); Mean Corpuscular Hgb 31.8 pg (27.0-32.0); Mean Corpuscular Volume 90.3 fL (81-99); Mean Platelet Vol. 9.2 fl (6.2-12.0); Monocyte# 0.54 X10^3/uL; Monocyte% 5.6 % (0-10); NRBC Flagged by Analyzer 0 % (0-5); Neutrophil # 7.51 X10^3/uL (2.7-7.7); Neutrophil % 78.6 % (47-70); Platelet Count 230 K/mm3 (150-450); RBC Distribution Width CV 13.2 % (11.6-14.6); RBC Distribution Width SD 43.1 fl (35.1-43.9); Red Blood Count 4.12 M/mm3 (4.2-5.4); White Blood Count 9.6 K/mm3 (4.4-11.0)
[2022-03-26 11:03] LABS: NATERA MAILED SPECIMEN
[2022-03-26 11:21] LABS: HIV - WCH Non-Reactive (Nonreactive); Hepatitis B Surface Antigen Non-Reactive (Nonreactive); Hepatitis C Antibody Non-Reactive (Nonreactive); Rubella IgG Reactive (Nonreactive); Syphilis Antibodies Non-reactive
[2022-03-26 12:04] LABS: Amphetamine Urine VISTA NEGATIVE (<1000 ng/mL); Barbiturate Urine VISTA NEGATIVE (< 200 ng/mL); Benzodiazepine Urine VISTA NEGATIVE (< 200 ng/mL); Cocaine Urine VISTA NEGATIVE (< 300 ng/mL); Ecstacy Urine VISTA NEGATIVE (< 500 ng/mL); Methadone Urine VISTA NEGATIVE (< 300 ng/mL); PCP Urine VISTA NEGATIVE (< 25 ng/mL); THC Urine VISTA NEGATIVE (< 50 ng/mL); Vista UDS pH Range 6
[2022-03-27 22:07] LABS: Chlamydia By Nucleic Acid AMP Negative (Negative)
[2022-03-28 17:54] LABS: Gonococcus By Nucleic Acid AMP Negative (Negative)
== END | disposition home or self-care (01) ==
PROVIDERS: Referring Provider Obstetrics & Gynecology; Visit Provider Obstetrics & Gynecology
DX: O09.91 Supervision of high risk pregnancy, unspecified, first trimester (principal); Z31.430 Encounter of female for testing for genetic disease carrier status for procreative management; Z3A.00 Weeks of gestation of pregnancy not specified
CPT/HCPCS: 36415; 80307; 85025; 86703; 86762; 86780; 86803; 86850; 86900; 86901; 87086; 87088; 87340; 87491; 87591

== ENCOUNTER → 2022-05-23 | Outpatient (CLI) | payer BC, SELFPAY ==
--- NOTE | 2022-05-23 12:24 | US_ITS ---
STUDY: SECOND AND THIRD TRIMESTER OBSTETRICAL ULTRASOUND REASON FOR EXAM: Female, 31 years old routine survey LMP: 12/31/2021 TECHNIQUE: Transabdominal and Transvaginal TECHNICAL QUALITY: Adequate. PRIOR ULTRASOUND: None. FINDINGS: There is a single intrauterine fetus. The fetus is in a cephalic presentation. There is demonstrated cardiac activity with a heart rate of 145 bpm. There is a subjectively normal amniotic fluid volume. The largest amniotic fluid pocket measures 4.2 cm. . The placenta is posterior in location and is not low lying. There are Grade 0 placental changes. The cervix measures 4.2 cm in length. The bilateral adnexal regions are normal. BIOMETRY: BPD: 4.5 cm: 19 weeks, 3 days HC: 17.2 cm: 19 weeks, 5 days AC: 14.9 cm: 20 weeks, 1 days FL: 3.2 cm: 20 weeks, 0 days age by current US: 19 weeks, 5 days. SANA by current US: 10/02/2022. Estimated weight: 326 grams, +/- 49 grams, 24 %. Age by LMP: 20 weeks, 3 days. SANA by LMP: . ANATOMY: Gender: Indeterminant Cranium: Normal lateral ventricles. Normal choroid plexus. Normal cerebellum. Normal cisterna magna. Normal face, nose and lips. Chest: Normal 4-chamber heart. Abdomen/Pelvis: Normal diaphragm. Normal stomach. Normal abdominal wall. Normal cord insertion. Normal 3 vessel cord. Normal kidneys. Normal bladder. Spine: Normal cervical spine. Normal thoracic spine. Normal lumbar spine. Normal sacrum. Extremities: Normal bilateral upper extremities. Normal bilateral lower extremities. US/OB Anatomy Scan IMPRESSION: Single live intrauterine at 19 weeks, 5 days by current ultrasound with SANA of 10/12/2022. Heart rate of 145 bpm. No suspicious sonographic findings. Electronically Signed: Cyrus Clark MD at 13:56 EDT ,
== END | disposition home or self-care (01) ==
PROVIDERS: Referring Provider Obstetrics & Gynecology; Visit Provider Obstetrics & Gynecology
DX: Z36.9 Encounter for antenatal screening, unspecified (principal)
CPT/HCPCS: 36415; 76805; 76817

== ENCOUNTER → 2022-07-18 | Outpatient (CLI) | payer BC, SELFPAY ==
[2022-07-18 12:32] LABS: Absolute Lymphocyte Count 1.14 X10^3/uL (0.83-4.51); Absolute Neutrophil Count 10.5 X10^3/uL (2.0-7.7); Basophil# 0.02 X10^3/uL; Basophil% 0.2 % (0-1); Eosinophils% 0.8 % (0-5); Hematocrit 35.2 % (37-47); Hemoglobin 11.7 g/dL (12.0-15.0); Lymphocyte # 1.14 X10^3/ul (0.83-4.51); Lymphocyte % 9.4 % (19-41); Mean Corp Hgb Conc 33.2 g/dL (32-36); Mean Corpuscular Hgb 30.4 pg (27.0-32.0); Mean Corpuscular Volume 91.4 fL (81-99); Monocyte# 0.36 X10^3/uL; NRBC Flagged by Analyzer 0 % (0-5); Neutrophil # 10.46 X10^3/uL (2.7-7.7); Neutrophil % 86.2 % (47-70); Platelet Count 279 K/mm3 (150-450); RBC Distribution Width CV 12.1 % (11.6-14.6); Red Blood Count 3.85 M/mm3 (4.2-5.4); White Blood Count 12.1 K/mm3 (4.4-11.0)
[2022-07-18 13:19] LABS: Glucose Challenge Gest 1H 50g 150 mg/dL (70-140)
[2022-07-18 13:49] LABS: HIV - WCH Non-Reactive (Nonreactive); Syphilis Antibodies Non-reactive
== END | disposition home or self-care (01) ==
LOC: LAB 10:52
PROVIDERS: Visit Provider Obstetrics & Gynecology
DX: Z34.90 Encounter for supervision of normal pregnancy, unspecified, unspecified trimester (principal)
CPT/HCPCS: 36415; 82950; 85025; 86703; 86780

== ENCOUNTER → 2022-07-23 | Outpatient (CLI) | payer BC, SELFPAY ==
[2022-07-23 07:19] LABS: Glucose GTT-Gestation. Fasting 103 mg/dL (<105)
[2022-07-23 09:09] LABS: Glucose GTT-Gestational 1 Hr 143 mg/dL (<190)
[2022-07-23 09:50] LABS: Glucose GTT-Gestational 2 Hr 89 mg/dL (<165)
[2022-07-23 11:20] LABS: Glucose GTT-Gestational 3 Hr 65 L (<145)
== END | disposition home or self-care (01) ==
LOC: LAB 06:50
PROVIDERS: Referring Provider Obstetrics & Gynecology; Visit Provider Obstetrics & Gynecology
DX: Z13.1 Encounter for screening for diabetes mellitus (principal)
CPT/HCPCS: 36415; 82951; 82952

== ENCOUNTER → 2022-09-12 | Outpatient (CLI) | payer BC, SELFPAY | END | disposition home or self-care (01) | LOC: LABSPEC 10:47 | PROVIDERS: Referring Provider Obstetrics & Gynecology; Visit Provider Obstetrics & Gynecology | DX: O09.90 Supervision of high risk pregnancy, unspecified, unspecified trimester (principal) | CPT/HCPCS: 87081 ==

== ENCOUNTER 2022-09-30 05:08 | Inpatient (IN) | payer BC, SELFPAY ==
--- NOTE | 2022-09-29 17:29 | HP.PCM_ITS ---
History and Physical Intake Vital Signs ? 03/26/2209:40 09/26/2308:52 09/26/2308:53 Height 5 ft 3 in 5 ft 3 in 5 ft 3 in Weight: ? ? 156 lb 2 oz BMI ? ? 27.6 BP ? ? 123/79 H Intake Visit Reasons:?est ob 38w Chief Complaint: 38 Week OB Edi Specialist Required: No Is patient in pain?: No Allergies No Known Allergies Allergy (Verified 09/26/22 09:50) Medications multivitamin no.47-iron fum 27 mg-folate no.1? 1 mg-dha 300 mg capsule (PNV-DHA) cap PO 03/19/22 [History Confirmed 09/26/22] Last Menstrual Period: 01/06/22 Zika: Zika virus screening: Negative : No PFSH PFSH Medical History? Abnormal glucose affecting Surgical History? delivery delivered History of elbow surgery History of wisdom tooth extraction, class II edentulism Family History? Grandmother Alzheimer's dementia Social History? adopted:? No household members:? spouse and children housing:? house number of children:? 2 current occupational status:? 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 No pets and animals:? No history of recent travel:? Yes details: January out of state: Yes out of country: No sexually active:? Yes Smoking Status:? Never smoker alcohol intake:? never substance use type:? does not use well-balanced diet:? daily or most days caffeine:? Yes Type: coffee Number of servings: 1 eating out:? rarely or never during the past year weight has:? remained stable what type of physical activity do you participate in:? walking and yoga frequency:? daily duration:? 15-30 minutes/day dennis/shinto:? Latter-Day seatbelt use:? always do you feel safe at home:? Yes additional social history:? RanulfoZoila Roberson Patient works at [employer] History ? ? ? 3 ? Elective abortions ? Hx Para ? ? ? 2 ? Spontaneous abortions ? Hx # Term Pregnancies ? Ectopic pregnancies ? Hx # Pregnancies ? Multiple births ? # of living children ? ? ? 2 Past Pregnancies Del. Date Name GA/Weeks Outcome Route Bth Weight Infant Gen Labor Lgth Anesthesia Del Locatn Provider FOB 04/06/19 Bita 40 live - full term C- section ? Male ? spinal [facility] NADYA ? 09/10/20 Susan 39 live - full term C- section ? Female ? spinal [facility] NADYA ? Delivery Date: 04/06/19? Last Updated by: Celia Lake ? ? ? LTCS; True CPD; AoD; Failure to progress; [place] HPI est ob 38w Details: HANSA LOPEZ is a 32 year old who presents for routine OB visit. OB Visit SANA Calculator ? Estimated Delivery Date Method Current WG Current Estimate 10/07/22 Ultrasound #1 38w 3d Other Estimates 10/13/22 LMP (Certain) 37w 4d Expected Delivery Route/Plan Labor Preferences- plan rpt section at 39 weeks with SM CB/BF classes: no labor support person: Ranulfo labor intervention preferences: [] pain management options preferred: [] cut cord/dad catch: [] : yes PP control planned: discussed discussed possible routes of delivery and associated risks: [] special requests: [] Specific Issue/Plans Covid status: unvaccinated, covid in october 2021 Flu vaccine: declined Tdap vaccine: declines Rhogam: na LARC form signed: yes Problem list reviewed and updated with the most current plan of care details and appropriate orders placed.? Relevant counseling for the gestational age provided. Continue routine care and follow up unless otherwise noted in visit notes/problem list details Initial Weight:?Not Recorded Date -?-?-?-?-?-?-?-?-?-?-?-?- EGA Weight BP Urine Prot -?-?-?-?-?-?-?-?-?-?-?--?- Glucose FHR FuHt Pres Dilation -?-?-?-?-?-?-?-?-?-?-?-?- Effaced St Visit Note 03/26/22-?-?-?-?-?-?-?-?-?-?-?-?- 12w 1d 142 lb 2 oz 120/80 -?-?-?-?-?-?-?-?-?-?-?-?- ? 189 ? ? -?-?-?-?-?-?-?-?-?-?-?-?- ? ? JV- CRL off by a week, due date changed. pt does not want to know gender but wants mom to know after the 20 week ultrasound. 04/25/22-?-?-?-?-?-?-?-?-?-?-?-?- 16w 3d 146 lb 110/72 Negative -?-?-?-?-?-?-?-?-?-?-?-?- Negative 155 ? ? -?-?-?-?-?-?-?-?-?-?-?-?- ? ? SM- no vb cramping doing well labs reviewed 05/23/22-?-?-?-?-?-?-?-?-?-?-?-?- 20w 3d 148 lb 4 oz 120/77 Negative -?-?-?-?-?-?-?-?-?-?-?-?- Negative 147 ? ? -?-?-?-?-?-?-?-?-?-?-?-?- ? ? JV- wants AFP and has anatomy scan at noon today. 06/20/22-?-?-?-?-?-?-?-?-?-?-?-?- 24w 3d 150 lb 136/83 Negative -?-?-?-?-?-?-?-?-?-?-?-?- Negative 150 24 ? -?-?-?-?--?-?-?-?-?-?-?-?- ? ? SM- no vb lof good fm no regular ctx 07/18/22-?-?-?-?-?-?-?-?-?-?-?-?- 28w 3d 153 lb 8 oz 125/75 Negative -?-?-?-?-?-?-?-?-?-?-?-?- Negative 145 27 ? -?-?-?-?-?-?-?-?-?-?-?-?- ? ? JV- no lof, vaginal bleeding, or dec fm. gct today. pt declines tdap. 08/01/22-?-?-?-?-?-?-?-?-?-?-?-?- 30w 3d 150 lb 8 oz 112/72 Negative -?-?-?-?-?-?-?-?-?-?-?-?- Negative 145 29 ? -?-?-?-?-?-?-?-?-?-?-?-?- ? ? SM- no vb lof good fm no regular ctx 08/15/22-?-?-?-?-?-?-?-?-?-?-?-?- 32w 3d 153 lb 2 oz 123/78 Negative -?-?-?-?-?-?-?-?-?-?-?-?- Negative 158 32 ? -?-?-?-?-?-?-?-?-?-?-?-?- ? ? JV- No lof, vaginal bleeding, or dec fm. normal 3 hr 08/27/22-?-?-?-?-?-?-?-?-?-?-?-?- 34w 1d 155 lb 4 oz 118/78 Negative -?-?-?-?-?-?-?-?-?-?-?-?- Negative 156 33 ? -?-?-?-?-?-?-?-?-?-?-?-?- ? ? MH-No VB, LOF. Good FM.? Difficulty with sleeping. Benadryl discussed 09/12/22-?-?-?-?-?-?-?-?-?-?-?-?- 36w 3d 155 lb 126/85 Negative -?-?-?-?-?-?-?-?-?-?-?-?- Negative 155 36 Cephalic -?-?-?-?-?-?-?-?-?-?-?-?- ? ? SM- no vb lof good fm no regular ctx 09/19/22-?-?-?-?-?-?-?-?-?-?-?-?- 37w 3d 155 lb 6 oz 113/67 -?-?-?-?-?-?-?-?-?-?-?-?- ? 150 37 Cephalic -?-?-?-?-?-?-?-?-?-?-?-?- ? ? SM- no vb lof good fm no regualr ctx 09/26/22-?-?-?-?-?-?-?-?-?-?-?-?- 38w 3d 156 lb 2 oz 123/79 Negative -?-?-?-?-?-?-?-?-?-?-?-?- Negative 150 ? Cephalic -?-?-?-?-?-?-?-?-?-?-?-?- ? ? SM- no vb lof good fm no regular ctx ACOG First Trimester First Trimester: Desire for , Alcohol, Tobacco Cessation, Illicit/Recreational Drug/Substance Use, Intimate Partner Violence, Barriers to care, Unstable Housing, Communication Barriers, Environmental/Work Hazards, Anticipated Course of Care, Toxoplasmosis Precations, Use of Any medications, Sexual activity, Exercise, Dental Care, Sauna/Hot tub use, Seat Belt use, Childbirth classes/Hospital facilities, Travel, Indications for Ultrasound and Screening for Aneuploidy; Discussed Second Trimester Second Trimester: Signs and Symptoms of Labor, Selecting a care provider, Reproductive Life Planning & Contreception, Care Planning, Tobacco Cessation, Depression/Anxiety and Intimate Partner Violence Third Trimester Third Trimester: Pain Management Plans, Labor support person(s), Immediate Larc, Movement Monitoring, Signs and Symptoms of Preeclampsia, Infant Feeding No and Family Medical Leave or Disability Forms; Discussed Trial of Labor after Counseling and Discussed Circumcision preference Diagnostics Diagnostics Diagnostics: ?? ? Blood Type O POSITIVE ?? ? Antibody Screen NEGATIVE ?? ? Gest Glucose Tolerance ?MG/DL ?? ? Glucose 1 Hr 50 gm 150 mg/dL (70-140)? H ?? ? HIV 1&2 Antibody Non-Reactive? (Nonreactive) ?? ? Rubella IgG Antibody Reactive? (Nonreactive) A ?? ? Hgb 11.7 g/dL (12.0-15.0)? L ?? ? Hct 35.2 % (37-47)? L ?? ? Chlamydia DNA (EZIO) Negative? (Negative) ?? ? N.gonorrhoeae DNA (EZIO) Negative? (Negative) Details: HIV: Urine Culture: Sequential Screen: NIPT Screen: ROS Const Reports system reviewed and no additional complaints, except as documented Card Reports system reviewed and no additional complaints, except as documented Resp Reports system reviewed and no additional complaints, except as documented GI Reports system reviewed and no additional complaints, except as documented, Reports nausea Reports system reviewed and no additional complaints, except as documented Musc Reports system reviewed and no additional complaints, except as documented all other systems reviewed and negative Exam Const General: cooperative, healthy appearing, comfortable HENMT Head: normal to inspection Nose: external nose normal Face and sinus: normal facial exam Neck Neck: normal visual inspection, full ROM, no lymphadenopathy Thyroid: thyroid normal Chest Chest palpation & inspection: normal inspection of the chest Resp Effort & Inspection: normal respiratory effort GI Inspection: normal to inspection Palpation: soft, other (gravid uterus) Other: vertex and appropriate size for gestational age Other: Cervical Exam: [ ] Extrem General: pedal edema Results POC Urinalysis 2 Dip? (Clinic) Office Urine Glucose Negative ? ? Last Edit by Precious Mustafa on 09/26/22 09:52 Office Urine Protein Negative ? ? Last Edit by Precious Mustafa on 09/26/22 09:52 Coding Level of Care Code OB Routine Diagnoses Abnormal glucose affecting ? O99.810 Hx of section? Z98.891 Supervision of high-risk ? O09.90 ? Z3A.38 ? ? ? Weeks of gestation: 38 weeks Assessment and Plan Assessment and Plan (1) Abnormal glucose affecting : ?Status:?Acute ?Comment: ?07/23 NL GTT (2) Hx of section: ?Status:?Acute ?Comment: plan RLTCS 2 c sections, LTCS, True CPD, AoD, failure to progress: [place].? RLTCS scheduled 09/30 @ 7:10 with (3) Supervision of high-risk : ?Status:?Acute ?Comment: PRR , SANA 10/07/22, surprise PC Susan Sunshine, Spouse aRnulfo (4) : ?Status:?Acute ?Qualifiers: ?Weeks of gestation:?38 weeks? Qualified Code(s):?Z3A.38 - 38 weeks gestation of ?Comment: GBS neg, NIPT low risk, Carrier neg. AFP normal Normal anatomy US 05/23/22 ? ? ? Orders: Orders plan RLTCS UPDATE- I have seen the patient and performed any clinically relevant updates to the history and physical exam. Carolyn Dennis MD
[2022-09-30] VITALS (18 sets, daily range): BP systolic 94–114; BP diastolic 49–74; PULSE 80–114; RESP 12–20; TEMP 36–37.4; O2SAT 95–100; BMI 27.6
--- NOTE | 2022-09-30 | FALS_PTH ---
PATIENT: HANSA LOPEZ LOC: WP U#:[id number] AGE/SX: 32/F ROOM: WP006 RE09/30/[address]: Dr. Carolyn Dennis MD : 1990 BED: 1 DIS: 10/02/2022 SPEC #: [id number] RECD: 09/30/22 13:34 STATUS: LUIZ REQ #: [id number] IGNACIO: 09/30/22 00:[address]: Carolyn Dennis DEPT: SURGICAL PATHOLOGY RECD BY: Tito Johnson ENTERED: 09/30/22 13:34 SP TYPE: FALL TUBES OTHR DR: No Primary Care Phys Tissues: Fallopian tube Procedures: Surgery Specimen Level II HEADER OPERATION: Tubal ligation PRE-OP DIAGNOSIS: Sterilization TISSUE SUBMITTED: Fallopian tubes, suture in right tube MICROSCOPIC DIAGNOSIS Bilateral fallopian tubes, salpingectomy: Bilateral fallopian tubes, no pathologic diagnosis. NORBERTO:santos 10/01/2022 MICROSCOPIC DESCRIPTION Slides are reviewed. GROSS DESCRIPTION Received in fixative is one container labeled with the patient's name and designated bilateral fallopian tubes, right with suture. The specimen consists of bilateral fallopian tubes including fimbrial ends. The right fallopian tube measures 7.0 cm in length and 0.5 cm in diameter and the left fallopian tube measures 6.0 cm in length and 0.7 cm in diameter. Sections reveal unremarkable cut surfaces. Life Educator sections are submitted in two cassettes as follows: 1 ? right fallopian tube, 2 ? left fallopian tube. / NORBERTO:santos 09/30/2022 TC:4 CPT: 74058 x2
[2022-09-30] MEDS: Lactated Ringers 1,000 ML 999 ML IV (05:30)
[2022-09-30 05:41] LABS: Absolute Lymphocyte Count 2.11 X10^3/uL (0.83-4.51); Absolute Neutrophil Count 7.5 X10^3/uL (2.0-7.7); Basophil# 0.03 X10^3/uL; Basophil% 0.3 % (0-1); Eosinophil# 0.12 X10^3/uL; Eosinophils% 1.2 % (0-5); Hematocrit 32.9 % (37-47); Hemoglobin 10.6 g/dL (12.0-15.0); Lymphocyte # 2.11 X10^3/ul (0.83-4.51); Lymphocyte % 20.7 % (19-41); Mean Corp Hgb Conc 32.2 g/dL (32-36); Mean Corpuscular Hgb 27.1 pg (27.0-32.0); Mean Corpuscular Volume 84.1 fL (81-99); Mean Platelet Vol. 10.6 fl (6.2-12.0); Monocyte# 0.41 X10^3/uL; NRBC Flagged by Analyzer 0 % (0-5); Neutrophil # 7.47 X10^3/uL (2.7-7.7); Neutrophil % 73.2 % (47-70); Platelet Count 291 K/mm3 (150-450); RBC Distribution Width CV 12.8 % (11.6-14.6); RBC Distribution Width SD 38.8 fl (35.1-43.9); Red Blood Count 3.91 M/mm3 (4.2-5.4); White Blood Count 10.2 K/mm3 (4.4-11.0)
[2022-09-30] MEDS: Acetaminophen 500 MG Tablet 1000 MG PO ×3 (05:53→19:06)
[2022-09-30] MEDS: Lactated Ringers 1,000 ML 150 ML IV (06:32)
[2022-09-30] MEDS: Sodium Citrate/Citric Acid 30 ML UDC PO (06:56)
[2022-09-30] MEDS: Cefazolin 2 GM in 0.9% Normal Saline 100 ML IV (07:07)
--- NOTE | 2022-09-30 09:06 | EX.PCM.OBRPT ---
Assessment & Plan (1) : QUALIFIERS: Weeks of gestation: 38 weeks Qualified Code(s): Z3A.38 - 38 weeks gestation of COMMENT: GBS neg, NIPT low risk, Carrier neg. AFP normal Normal anatomy US 05/23/22 (2) Supervision of high-risk : COMMENT: PRR , SANA 10/07/22, surprise PC Susan Sunshine, Spouse Ranulfo (3) Hx of section: COMMENT: plan RLTCS 2 c sections, LTCS, True CPD, AoD, failure to progress: [place]. RLTCS scheduled 09/30 @ 7:10 with SM (4) Abnormal glucose affecting : COMMENT: 07/23 NL GTT Maternal Data Information SANA Calculator Estimated Delivery Date Method Current WG Current Estimate 10/07/22 Ultrasound #1 39w 0d Other Estimates 10/13/22 LMP (Certain) 38w 1d Details Operative Information Date of Procedure: 09/30/22 Pre-Operative Diagnosis: Previous x2 desires sterilization Post-Operative Diagnosis: Same plus repair of cystotomy Indications for : Repeat Elective and Desires elective sterilization Indications Narrative: Patient presented for scheduled repeat low-transverse and bilateral salpingectomy Classification: Scheduled Procedure Type: low transverse (Bilateral salpingectomy) nutritional assistant #1: Elijah Abdalla Type of Anesthesia: Spinal Special Medications: sheldon Antibiotic Given: Ancef 2 grams IV x1 and Zithromax 500 mg/5 mL X1 Drain: Meng to straight drain Estimated Blood Loss: 500 Fluids Replaced: Crystalloid Findings Description of Procedure: Patient presented for repeat low transverse and spinal anesthesia was placed without difficulty. Patient was prepped and draped in normal sterile fashion in the dorsal supine position with Meng catheter placed. Pfannenstiel skin incision was made through the previous incision carried through to the underlying layer of the fascia with the scalpel fascia was nicked in the midline and the incision extended laterally with the scalpel and with the Bovie. Rectus bellies dissected off bluntly and peritoneum entered digitally superiorly just underneath the rectus bellies and the incision stretched laterally. Low transverse uterine incision was made with a scalpel and the 's head was delivered atraumatically followed by the anterior and posterior shoulders the rest the was delivered and bulb suctioned at delivery. Delayed cord clamping was employed and the was passed off to the awaiting nurse without complication. At this time the abdomen was inspected and the uterus was exteriorized and cleared of all clots and debris after the placenta was removed and noted to be intact and have a three-vessel cord. An incidental cystotomy was identified at this time at the dome of the bladder with significant scar tissue of the bladder being pulled laterally. Urologist was called in for consultation and repair. Please see his note for additional information. Some scar tissue was taken down to free up the area of the bladder injury in order to aid in repair and restore normal anatomy. Single layer uterine closure was employed with #1 Monocryl and excellent hemostasis was noted with the application of Sheldon. Bilateral salpingectomy was performed using the LigaSure device transecting under the mesosalpinx laterally and then detaching the fallopian tubes from the uterus at their uterine attachment medially. Again after the uterus was inside the abdomen after repair of the cystotomy and application of Sheldon the area was all checked and noted to be hemostatic. Rectus bellies were reapproximated with 3-0 Vicryl and fascia closed with 0 PDS strata fix. Skin closed with 4-0 Monocryl and dressing applied without complication. Patient was taken recovery in stable condition. Procedures Urinary/Genital [id number]: 11231 C/S+TL (bilateral salpingectomy)
[2022-09-30] MEDS: Oxytocin 15 Units/NS 250ml 15 UNITS/250 ML IV.SOLN 83 UNITS IV (09:20)
[2022-09-30] MEDS: Ketorolac 30 MG/ML Syringe IV ×3 (09:46→21:38)
[2022-09-30 10:51] LABS: Pathology Specimen OB SEE PATHOLOGY REPORT
--- NOTE | 2022-09-30 11:09 | PCM.OPRPT ---
Report of Operation Date of Procedure: 09/30/22 Pre-Operative Diagnosis: Bladder injury Post-Operative Diagnosis: Same Surgery/Procedure Performed:: Open repair of injured bladder Description of Surgical Findings:: 32-year-old female was having a repeat I was called in because the ANALYTICS MANAGER had recognized injury to the dome of the bladder and had requested I come into help fix the injury to the bladder. When I arrived and scrubbed and to the operating room the patient already had a the baby had been delivered and also the uterus had been closed. That point we inspected and there was a laceration tear at the top of the bladder sort of a J-shaped injury to the top the bladder I then started with a repair of this bladder injury in two layers first layer running was a 3-0 Vicryl, And then after this the second layer was a 2-0 Vicryl stitch, after we repaired this obvious injury to the bladder that I had them fill the bladder with about 300 mL and then we recognize that there was another injury to the bladder right next to this tear it was a's are also an muscle layer tear about the mucosal was still intact so I closed this laceration area with a running 2-0 Vicryl stitch. After this was an completed we filled the bladder again with water the bladder distended nicely and there was no obvious leakage it was watertight closure and no areas of weakness was seen. There was no bleeding. At this point I instructed the information systems security specialist to leave the catheter in for at least two weeks and the patient will be contacted by my office to set up a follow-up appointment to have the catheter removed and the cystogram. We could also use any anticholinergics for bladder spasms. Surgeon: Franck Hall Type of Anesthesia: Spinal General Anesthesia Admit VTE Documentation VTE Present on Admission: No VTE Mechan Device Prophylaxis: SCD's VTE Pharm Prophylaxis ordered?: No
[2022-09-30] MEDS: Lactated Ringers 1,000 ML 100 ML IV (12:17)
[2022-09-30] MEDS: Cefazolin 1 GM/50 ML BAG IV ×2 (15:13→23:20)
[2022-09-30 15:40] LABS: Hematocrit 30.8 % (37-47); Mean Corp Hgb Conc 32.5 g/dL (32-36); Mean Corpuscular Hgb 27.4 pg (27.0-32.0); Mean Corpuscular Volume 84.4 fL (81-99); Mean Platelet Vol. 10.8 fl (6.2-12.0); Platelet Count 278 K/mm3 (150-450); RBC Distribution Width CV 12.8 % (11.6-14.6); RBC Distribution Width SD 38.5 fl (35.1-43.9); Red Blood Count 3.65 M/mm3 (4.2-5.4); White Blood Count 18.2 K/mm3 (4.4-11.0)
--- NOTE | 2022-09-30 15:50 | DCINST_ITS ---
Discharge Instructions Diet Discharge Diet: No restrictions Activity Discharge Activity: Return to Normal Activity, May Drive (when pain free and off narcotic pain meds), May Shower and May Take a Tub Bath (in 4 weeks) May resume sexual activity in: 6 weeks Weight Bearing Status: Full weight bearing Lifting Restrictions: under 30 lbs for 6 weeks Dressing / Incision Call your doctor if your incision/area has: Continuous Slow Oozing, Sudden Increased Bleeding, Increased Pain/ Swelling, Increased Redness, Foul Smelling Discharge and - Call your doctor if you observe: Fever of 101 or Higher, Using more than 1 pad per hour, Shortness of breath, Chest pain and Uncontrolled pain Suture Line Care: Avoid Pulling/Pushing and Avoid Pinching/Bending Change Dressing in: 1 week (leave open to air after removed) Remove Dressing in: 1 week (if present) Cleanse incision/area with: Soap & Water and Keep Dressing Clean & Dry Follow Up Care Please Follow Up With: Carolyn Dennis MD When: Call to make an appointment with your doctor for a postop visit in 2 and 6 weeks. Test Results: Test results from this visit will be discussed in further detail at your follow- up appointment, if applicable. Discharge Plan Admission Admit Date/Time: 09/30/22 05:08 Attending Provider: Carolyn Dennis Primary Care Provider: Care PhysicianSummer Primary Discharge Orders/Prescriptions Prescriptions: New naproxen 250 mg tablet 250 - 500 mg PO Q8H PRN PRN (Reason: MILD PAIN) Qty: 30 1RF oxycodone 5 mg tablet 5 mg PO Q6H PRN (Reason: pain) 7 Days Qty: 20 0RF Continued PNV-DHA 27 mg iron-1 mg -300 mg capsule 1 cap PO DAILY Referrals / Follow Up: Care Physician,No Primary [Primary Care Provider] - Disposition Disposition (needs filled in before D/C Order can be placed): Home, Self Care
[2022-09-30 16:19] LABS: Absolute Lymphocyte Count 0.88 X10^3/uL (0.83-4.51); Absolute Neutrophil Count 16.3 X10^3/uL (2.0-7.7); Basophil# 0.03 X10^3/uL; Basophil% 0.2 % (0-1); Lymphocyte # 0.88 X10^3/ul (0.83-4.51); Monocyte# 0.39 X10^3/uL; Monocyte% 2.2 % (0-10); NRBC Flagged by Analyzer 0 % (0-5); Neutrophil # 16.27 X10^3/uL (2.7-7.7); Neutrophil % 92.2 % (47-70)
--- NOTE | 2022-09-30 19:46 | NURSING ---
pt has indwelling urinary catheter that pt will be discharged to home with due to bladder laceration during repeat c/s
[2022-09-30] MEDS: 0.9% Saline Lock 10 ML Syringe IV ×3 (21:38→23:59)
[2022-10-01] MEDS: Acetaminophen 500 MG Tablet 1000 MG PO ×4 (00:04→18:19)
[2022-10-01 03:25] VITALS: BP 91/47; PULSE 79; RESP 18; TEMP 37.3; O2SAT 96
[2022-10-01] MEDS: Ketorolac 30 MG/ML Syringe IV (03:40)
[2022-10-01] MEDS: 0.9% Saline Lock 10 ML Syringe IV (03:40)
[2022-10-01 05:29] LABS: Hematocrit 28.5 % (37-47); Hemoglobin 9.1 g/dL (12.0-15.0); Mean Corp Hgb Conc 31.9 g/dL (32-36); Mean Corpuscular Hgb 27.2 pg (27.0-32.0); Mean Corpuscular Volume 85.1 fL (81-99); Mean Platelet Vol. 10.3 fl (6.2-12.0); Platelet Count 252 K/mm3 (150-450); RBC Distribution Width CV 12.8 % (11.6-14.6); RBC Distribution Width SD 39.4 fl (35.1-43.9); Red Blood Count 3.35 M/mm3 (4.2-5.4); White Blood Count 12.7 K/mm3 (4.4-11.0)
--- NOTE | 2022-10-01 07:20 | NURSING ---
report given to Denzel Del Toro RN who is assuming care of pt at this time
--- NOTE | 2022-10-01 07:30 | NURSING ---
report given to Dru Alvarez RN who is assuming care of pt at this time
[2022-10-01 07:53] VITALS: BP 96/58; PULSE 90; RESP 16; TEMP 37.4; O2SAT 96
--- NOTE | 2022-10-01 08:08 | PN.OBGYN_ITS ---
Subjective Subjective Patient doing well without complaints. Tolerating PO. Ambulating without difficulty. Meng cath remains and draining clear urine. Feeding well. Denies chest pain, shortness of breath, calf pain/swelling, fevers, chills, lightheadedness. Objective Data Objective Data Vital Signs: Vital Signs Temp Pulse Resp BP Pulse Ox O2 Del Method 99.3 F H 90 16 96/58 L 96 Room Air 10/01/22 07:53 10/01/22 07:53 10/01/22 07:53 10/01/22 07:53 10/01/22 07:53 10/01/22 07:53 Oxygen Delivery Method Room Air Weight: 155 lb 9.6 oz Body Mass Index (BMI) 27.6 Intake & Output: Intake and Output for Last 24 Hours 09/29/22 09/30/22 10/01/22 23:59 23:59 23:59 Intake Total 4409.85 / 4409.85 Output Total 3500 / 3500 Balance 909.85 / 909.85 Lab / Micro Data Result Diagrams: 10/01/22 05:15 Labs: Laboratory Results - last 24 hr 09/30/22 15:30: WBC 18.2 H, RBC 3.65 L, Hgb 10.0 L, Hct 30.8 L, MCV 84.4, MCH 27.4, MCHC 32.5, RDW Std Deviation 38.5, RDW Coeff of John 12.8, Plt Count 278, MPV 10.8, Immature Gran % (Auto) 0.400, Neut % (Auto) 92.2 H, Lymph % (Auto) 5.0 L, [place] % (Auto) 2.2, Eos % (Auto) 0.0, Baso % (Auto) 0.2, Absolute Neuts (auto) 16.3 H, Absolute Lymphs (auto) 0.88, Nucleated RBC % 0 10/01/22 05:15: WBC 12.7 H, RBC 3.35 L, Hgb 9.1 L, Hct 28.5 L, MCV 85.1, MCH 27. 2, MCHC 31.9 L, RDW Std Deviation 39.4, RDW Coeff of John 12.8, Plt Count 252, MPV 10.3 Physical Exam Const alert and oriented x3 HEENT normocephalic Eyes PERRL Neck full ROM Resp normal respiratory effort GI soft to palpation GI Narrative: FF below U. Dressing dry and intact Palpation: tender other (appropriately) Assessment & Plan (1) delivery delivered: COMMENT: SHAI RLTCS BS cystotomy boy [place] 39 PLAN: Plan s/p LTCS PPD # 1 1. routine post care 2. breast feeding- support given 3. rh positive 4. rubella immune
[2022-10-01] MEDS: Senna/Docusate Sodium 1 Tablet PO (09:41)
[2022-10-01] MEDS: Naproxen 500 MG Tablet PO ×2 (09:41→18:19)
[2022-10-01 14:18] VITALS: BP 111/64; PULSE 90; RESP 16; TEMP 37.2; O2SAT 99
[2022-10-01 20:45] VITALS: BP 113/56; PULSE 93; RESP 17; TEMP 37.2
[2022-10-02] MEDS: Acetaminophen 500 MG Tablet 1000 MG PO ×3 (00:30→12:34)
[2022-10-02 02:00] VITALS: BP 96/47; PULSE 87; RESP 18; TEMP 36.9
[2022-10-02] MEDS: Naproxen 500 MG Tablet PO ×2 (02:00→10:23)
--- NOTE | 2022-10-02 06:16 | PCM.PN.OB ---
Subjective Subjective Patient doing well without complaints. Tolerating PO. Ambulating and voiding without difficulty. feeding well. Denies chest pain, shortness of breath, calf pain/swelling, fevers, chills, lightheadedness. Objective Data Objective Data Vital Signs: Vital Signs Temp Pulse Resp BP Pulse Ox O2 Del Method 98.5 F 87 18 96/47 L 99 Room Air 10/02/22 02:00 10/02/22 02:00 10/02/22 02:00 10/02/22 02:00 10/01/22 14:18 10/01/22 14:18 Oxygen Delivery Method Room Air Weight: 155 lb 9.6 oz Body Mass Index (BMI) 27.6 Intake & Output: Intake and Output for Last 24 Hours 09/30/22 10/01/22 10/02/22 23:59 23:59 23:59 Intake Total 4409.85 / 4409.85 Output Total 3500 / 3500 4200 / 4200 600 / 600 Balance 909.85 / 909.85 -4200 / -4200 -600 / -600 Lab / Micro Data Result Diagrams: 10/01/22 05:15 ROS Constitutional Constitutional: Reports systems reviewed and no addt'l complaints, except as documented Cardiovascular Cardiovascular: Reports systems reviewed and no addt'l complaints, except as documented Respiratory/Chest Respiratory/Chest: Reports systems reviewed and no addt'l complaints, except as documented Gastrointestinal Gastrointestinal: Reports systems reviewed and no addt'l complaints, except as documented Physical Exam Const alert, oriented x3 and no apparent distress HEENT Head and Scalp: atraumatic Resp normal respiratory effort GI soft to palpation and non-tender Inspection: incision intact, healing well and drainage (none) Bimanual Exam - Vag & Uterus: uterus non-tender Uterus Palpation: uterus fundus firm (below Umbilicus) Assessment & Plan (1) delivery delivered: COMMENT: SHAI RLTCS BS cystotomy boy Bethea 39 PLAN: Plan s/p LTCS PPD # 2 1. routine post care 2. breast feeding- support given 3. rh positive 4. rubella immune 5. cystotomy- home with leg bag teaching, fu with Dr Hall in 2 weeks
[2022-10-02 09:06] VITALS: BP 117/68; PULSE 94; RESP 16; TEMP 37; O2SAT 97
[2022-10-02] MEDS: Senna/Docusate Sodium 1 Tablet PO (10:23)
--- NOTE | 2022-10-02 12:38 | CASEMGMT ---
Social Work Brief Assessment Labor and Delivery Unit Patient Address: [address] [place] [id number] Phone number: [phone] Date of Referral/Notification: 09/30/2022 Time of Referral: 1442 Referred By: Dr. Carolyn Dennis Date of Intervention: 10/02/2022 Time of Intervention: 1005 Reason for Referral: Maternal history of anxiety Informant: Medical record and mother of baby (MOB) Krystina Tesfaye; father of baby (FOB) Ranulfo Tesfaye also present History: MOB is a 32-year-old female, to the FOB. MOB is G2, P2 to 3 after delivering baby boy [place]. care started at 12 weeks. Delivery via caesarian section. weight for Bethea 6 pounds 14 ounces. Apgars 8 and 9 at 1 and 5 minutes of life. Minor children include: Bita (9..2018), Susan (2.8.21), and Bethea (2.28.). MOB works parttime in the [employer] industry and FOB works for a [employer]. No reports of any substance use issues for MOB or family. MOB admits to some anxiety, but denies it lasting long. No reported history of medicine or counseling. MOB denied any safety concerns or abuse issues upon admission, and no indication of such during SW visit. Assessment: Met with MOB and FOB in room, introducing to self and role. MOB in bed, breast feeding . Good eye contact, pleasant, reporting to be doing well. MOB does have a Meng catheter in and anticipated will discharge home with a catheter. Explored how MOB is doing with this change in status. MOB reports to be doing okay, and no voiced distress. Broached PPD/PPA and MOB reports has had this in the past, but denies current concerns. Reports to have good support from both sides of the family. FOB reports will have 6 weeks off of work and can take up to 3 months if needed. Report to have adequate house, necessary supplies for baby, breast feeding, and no issues with food/utilities/transportation. MOB accepted information on mood and anxiety disorders, as well as a list of counselors in the area should MOB want to see additional support. MOB and and FOB deny any concerns with home going. There have been no concerns voiced by staff regarding parent/child interactions or bonding. Plan: MOB and infant to home when ready. Resources provided for home going. No further needs requested or indicated. -RUBY Avelar, PLUG DRILL OPERATOR *This note was generated with [employer] dictation software. It may contain incorrect words, spelling, and punctuation that were not noted in review of the chart prior to signing*
== END 2022-10-02 12:50 | disposition home or self-care (01) | DRG 784 ==
PROVIDERS: Admitting Provider Obstetrics & Gynecology; Visit Provider Obstetrics & Gynecology
PROC: 10D00Z1 Extraction of Products of Conception, Low, Open Approach (ICD-10-PCS; CPT 59514; principal; 2022-09-30 06:55)
DX: O34.211 Maternal care for low transverse scar from previous cesarean delivery (principal); N99.71 Accidental puncture and laceration of a genitourinary system organ or structure during a genitourinary system procedure; O99.892 Other specified diseases and conditions complicating childbirth; Y92.234 Operating room of hospital as the place of occurrence of the external cause; Z28.310 Unvaccinated for COVID-19; Z30.2 Encounter for sterilization; Z3A.38 38 weeks gestation of pregnancy; Z37.0 Single live birth
CPT/HCPCS: 59025; 59050; 85025; 85027; 86850; 86900; 86901; 88302; 99221; J7120; A4216; G0378; J2405; Q9968

== ENCOUNTER → 2022-10-16 | Outpatient (CLI) | payer BC, SELFPAY ==
--- NOTE | 2022-10-16 09:10 | RAD_ITS ---
CLINICAL HISTORY: Female, 32 years old. Pelvic pain after , possible bladder injury PROCEDURE: Cystoscopy FLUOROSCOPY TIME (if supplied): (0:46) minutes/seconds 350 mL of contrast installed into the bladder in a retrograde fashion through Meng catheter. Crystal Joseph installed the contrast into the bladder. TECHNIQUE: (All elements of maximal sterile barrier technique followed, including US elements as applicable) Under fluoroscopic guidance, Cystografin contrast was instilled into the bladder via gravity. After approximately 350 mL of contrast was instilled, the patient stated that she needed to void. AP lateral and both oblique films of the bladder show normal distention of the bladder there is no wall thickening intraluminal lesion or evidence of a bladder leak. No postvoid residual noted after removal of the Meng catheter. RAD/Cystography min 3 Views IMPRESSION: Normal cystogram Electronically Signed: Cyrus Clark MD at 10:32 EDT ,
== END | disposition home or self-care (01) ==
LOC: RAD 08:57
PROVIDERS: Visit Provider Urology
DX: S37.20XA Unspecified injury of bladder, initial encounter (principal)
CPT/HCPCS: 51600; 74430; Q9965